=== PATIENT | female | born 1980 | race African-American/Black ===

== ENCOUNTER 2017-12-23 15:04 | Inpatient (IN) | payer MEDICARE, MEDICAID ==
[2017-12-23 15:56] LABS: Bilirubin Small (Negative); Blood, Urine Small (Negative); Clarity TURBID (Clear); Glucose, Urine (Dipstick) Negative (Negative); Leukocyte Moderate (Negative); Nitrite Negative (Negative); Protein, Urine (Dipstick) 100 mg/dL (Neg-Trace); Specific Gravity, Urine 1.019 (1.002-1.036); Urobilinogen 0.2 mg/dL (0.2-1.0)
[2017-12-23 15:58] LABS: Bacteria/HPF 4+ HPF (None Seen)
[2017-12-23 16:00] LABS: Pathc Cast-AUWi Flag 2.84 (0-2.49); Yeast-AUWi Flag 251.6 (0-25.0)
[2017-12-23 16:01] LABS: Pregnancy Test - Urine (BHCG) Negative (Negative); Pregu Control Background? CLEAR/WHITE (CLR/WHITE); Pregu Control Bar Appear? YES (CONTROL BAR); Specific Gravity 1.019 (1.002-1.036)
[2017-12-23 16:10] LABS: Hyaline Casts/LPF 0-3 HYALINE CAST LPF (0-3 Hyaline); Manual Microscopic Reviewed? No Path Casts Seen; RBC/HPF 0-3 HPF (0-3); Renal Epithelial None Seen HPF (0-3); Yeast-All Forms None Seen HPF (None Seen)
[2017-12-23 16:19] LABS: Hemoglobin 7.1 g/dL (12.0-16.0); Mean Corpuscular HGB CONC 31.9 g/dL (32.0-36.0); Mean Corpuscular Hemoglobin 20.4 pg (27.0-31.0); Mean Platelet Volume 7.4 fL (7.4-10.4); Platelet Count 229 thou/uL (130-400); RBC Distribution Width 17.6 % (11.5-14.5); Red Blood Cell (RBC) Count 3.47 mill/uL (4.20-5.40)
[2017-12-23 16:29] LABS: ALT (SGPT) 83 U/L (8-55); AST (SGOT) 71 U/L (5-34); Alkaline Phosphatase 76 U/L (40-150); Anion Gap 26 mmol/L (10-20); BUN (Urea Nitrogen) 100 mg/dL (7.0-18.7); Bilirubin, Total 0.5 mg/dL (0.2-1.2); Calc. Creatinine Clearance 0 mL/min (70-130); Calcium 8.8 mg/dL (7.8-10.44); Carbon Dioxide 18 mmol/L (22-29); Chloride 88 mmol/L (98-107); Estimated GFR-MDRD 5; Globulin 4.3 g/dL (2.4-3.5); Glucose 88 mg/dL (70-105); Potassium 3.5 mmol/L (3.5-5.1); Protein, Total 8.3 g/dL (6.0-8.3); Sodium 128 mmol/L (136-145)
[2017-12-23 16:41] LABS: Anisocytosis SLIGHT = 6-15 cells (100X) (0-5/hpf); Band 2 % (5-11); Hypochromia SLIGHT = 6-15 cells (100X) (0-5/hpf); Lymphocytes 3 % (21-51); MDiff Complete? YES; Microcytosis MODERATE=15-30 cells (100X) (0-5/hpf); Monocytes 3 % (0-10); Neutrophil 92 % (42-75); Ovalocytes SLIGHT = 2-5 cells (100X) (0-1/hpf); PLT Morphology Comment Appears Adequate
--- NOTE | 2017-12-23 17:44 | RAD ---
CHEST ONE VIEW: 12/23/17 HISTORY: 37-year-old female with history of chest pain, bodyaches and fever for two days. COMPARISON: 12/10/16. FINDINGS: Heart size is within normal limits. The lungs are clear. IMPRESSION: No acute intrathoracic disease. Stable from prior study. POS: [facility]
[2017-12-23] MEDS ORDERED: Ondansetron HCl/PF 4 MG/2 ML Vial IVP PRN (18:25)
[2017-12-23] MEDS ORDERED: Ondansetron ODT 4 MG TAB SL PRN (18:25)
[2017-12-23] MEDS: Sodium Chloride 0.9% 1,000 ML IV SCH (19:01)
[2017-12-24] MEDS ORDERED: Senokot 8.6 MG TAB PO PRN (04:41)
[2017-12-24] MEDS ORDERED: Acetaminophen 325 MG TAB PO PRN (04:41)
[2017-12-24] MEDS ORDERED: cloNIDine 0.1 MG TAB PO PRN (04:53)
--- NOTE | 2017-12-24 05:13 | HP ---
REASON FOR ADMISSION: Acute renal failure. HISTORY OF PRESENTING ILLNESS: Patient gives history of feeling weak and had abdominal pain. Please note, patient is a very poor historian. This started around yesterday. Patient states she has not started on any new medication. No complaints of any urinary burning or frequency. On arrival, patient was found to have had creatinine of 10 and BUN of 100, serum bicarbonate of 18. Patient has history of HIV from last 5 years and follows up with Dr. Hanson. She is unable to tell me if she has had any bleeding from her rectum. Her last stool was 2 days back and she states it looked normal. No diarrhea or nausea. No complaints or vomiting. Patient states she has been drinking normal fluid amount. No loss of appetite. Currently, she is comfortable, watching TV in the room. Her mom is at bedside. PAST MEDICAL AND SURGICAL HISTORY: History of HIV from last 5 years, hypertension, tubal ligation, has had scoliosis surgery. CURRENT MEDICATIONS: Lisinopril 20 mg twice daily, Atripla 1 tab daily. ALLERGIES: No known drug allergies. PERSONAL HISTORY: Does not abuse alcohol or drugs. No history of smoking. FAMILY HISTORY: Mother is here in the room and states she is healthy. The patient does not know much about her father, nor does her mom know as they have been for a long time now. REVIEW OF SYSTEMS: The following complete review of systems was negative, unless otherwise mentioned in the HPI or below: Constitutional: Weight loss or gain, ability to conduct usual activities. Skin: Rash, itching. Eyes: Double vision, pain. ENT/Mouth: Nose bleeding, neck stiffness, pain, tenderness. Cardiovascular: Palpitations, dyspnea on exertion, orthopnea. Respiratory: Shortness of breath, wheezing, cough, hemoptysis, fever, or night sweats. Gastrointestinal: Poor appetite, abdominal pain, heartburn, nausea, vomiting, constipation, or diarrhea. Genitourinary: Urgency, frequency, dysuria, nocturia. Musculoskeletal: Pain, swelling. Neurologic/Psychiatric: Anxiety, depression. Allergy/Immunologic: Skin rash, bleeding tendency. PHYSICAL EXAMINATION: GENERAL: Patient is a 37-year-old female who is currently not in any acute distress. VITAL SIGNS: Blood pressure 96/56 on arrival, pulse 104 per minute, respiratory rate 14 per minute, temperature 97.5 degrees Fahrenheit, saturating 97% on room air. NECK: Supple, no elevated JVD. HEENT: Extraocular muscles intact. Pupils are reacting to light. Oral cavity mucous membranes are dry. No exudates or congestion. CARDIOVASCULAR SYSTEM: S1, S2 heard. Regular rhythm. RESPIRATORY SYSTEM: Air entry 1+ bilateral. No rales or rhonchi. ABDOMEN: Soft, bowel sounds heard. There is mild tenderness in the left lower quadrant. No rigidity or guarding. EXTREMITIES: No peripheral edema or calf tenderness. VASCULAR SYSTEM: Peripheral pulses 1+ bilateral. No ischemic ulcerations or gangrene. CENTRAL NERVOUS SYSTEM: No gross focal deficits seen. Patient is alert, awake , oriented. PSYCHIATRIC SYSTEM: Patient's mood is euthymic. No hallucinations or delusions. LABORATORY DATA AND X-RAY FINDINGS: White count of 7, H&H 7 and 22, MCV is 64, platelet count is 229 with 92% neutrophils. Sodium 128, serum bicarbonate 18, BUN is 100, creatinine 10.2, glucose 88. AST 71, ALT 83, albumin is 4. Lipase is 68. UA shows moderate leukoesterase, greater than 50 wbc's, 4+ bacteria. Urine test is negative. Chest x-ray done shows no acute cardiopulmonary abnormalities. Telemetry shows the patient to be in sinus rhythm. CLINICAL IMPRESSION AND PLAN: Patient has sudden onset of acute renal failure and patient is also severely anemic with hemoglobin of 7 grams and MCV of 64. Her last H&H was 8 and 26 on 02/2017. Her last BUN and creatinine was 9 and 0.7 in 02/2017. We will obtain ultrasound of the kidneys and CT stone protocol as well in view of patient's left lower quadrant pain. It is unclear if she has got GI bleed or ureteric colic. Please note, patient is a very poor historian and it took me a while to get the history that I have gotten so far. We will get Dr. Hanson' consultation who knows patient well. We will also consult Dr. Lorenzana for Nephrology. She is on normal saline at 125 mL per hour and we will continue the same. We will obtain iron studies. Echo with 2D Doppler for LV function, a urine drug screen and likely Gastroenterology consultation. We will continue her Atripla as before. Hold her lisinopril for now. She will be on clonidine 0.1 mg t.i.d. p.r.n. Currently, she is hypotensive at present. Her systolic blood pressure has been trending around 90 and patient will be aggressively hydrated. There are no signs or symptoms of sepsis except for urinary tract infection and she will be on ceftriaxone for the same. We will closely follow her renal function and her hemoglobin until it stabilizes. Her prognosis is guarded for now. MTDD
[2017-12-24] MEDS: Sodium Chloride 0.9% 1,000 ML IV SCH ×2 (05:46→11:32)
[2017-12-24] MEDS: cefTRIAXone\\ROCEPHIN 1 GM in Syringe 10 ML IVPB SCH (05:48)
[2017-12-24 05:49] LABS: Iron 22 ug/dL (50-170); Iron Binding Capacity, Total 303 mcg/dL (265-497)
[2017-12-24 05:58] LABS: Albumin 3.6 g/dL (3.5-5.0); Anion Gap 15 mmol/L (10-20); BUN (Urea Nitrogen) 81 mg/dL (7.0-18.7); BUN/Creatinine Ratio 16.27; Calc. Creatinine Clearance 17 mL/min (70-130); Calcium 8.6 mg/dL (7.8-10.44); Carbon Dioxide 23 mmol/L (22-29); Chloride 98 mmol/L (98-107); Estimated GFR-MDRD 12; Glucose 92 mg/dL (70-105); Iron 22 ug/dL (50-170); Iron Binding Capacity, Total 301 mcg/dL (265-497); Phosphorus 5.4 mg/dL (2.3-4.7); Potassium 3.5 mmol/L (3.5-5.1); Sodium 132 mmol/L (136-145)
[2017-12-24 06:05] LABS: Band 1 % (5-11); Elliptocytes SLIGHT = 2-5 cells (100X) (0-1/hpf); Hemoglobin 6.4 g/dL (12.0-16.0); Lymphocytes 15 % (21-51); MDiff Complete? YES; Mean Corpuscular HGB CONC 31.2 g/dL (32.0-36.0); Mean Corpuscular Hemoglobin 20.4 pg (27.0-31.0); Mean Corpuscular Volume 65.4 fl (81.0-99.0); Mean Platelet Volume 6.9 fL (7.4-10.4); Microcytosis MODERATE=15-30 cells (100X) (0-5/hpf); Monocytes 15 % (0-10); Neutrophil 69 % (42-75); Platelet Count 215 thou/uL (130-400); RBC Distribution Width 17.3 % (11.5-14.5); Red Blood Cell (RBC) Count 3.14 mill/uL (4.20-5.40); White Blood Cell (WBC) Count 3.1 thou/uL (4.8-10.8)
[2017-12-24 06:23] LABS: Folate (Folic Acid) 12.3 ng/mL (7.0-31.4)
[2017-12-24 06:29] LABS: Amphetamine Not Detected (NotDetected); Barbiturates Screen Not Detected (NotDetected); Benzodiazepine Screen Not Detected (NotDetected); Cocaine Metabolite Screen Not Detected (NotDetected); Medtox Control Line Valid? VALID (VALID); Medtox Reader # READER 4; Methadone Not Detected (NotDetected); Methamphetamine Not Detected (NotDetected); Opiate Screen Not Detected (NotDetected); Oxycodone Screen Not Detected (NotDetected); Phencyclidine (PCP) Not Detected (NotDetected); THC/Cannabinoid Screen Not Detected (NotDetected); Tricyclic Screen Not Detected (NotDetected)
[2017-12-24] MEDS: Famotidine 20 MG TAB PO SCH (08:35)
[2017-12-24] MEDS: Heparin 5,000 UNITS/ML VIAL SC SCH ×2 (08:36→22:02)
[2017-12-24] MEDS ORDERED: Prevnar 13-Val Conj/PF 0.5 ML SYRINGE IM ONE (09:00)
[2017-12-24] MEDS ORDERED: cloNIDine 0.1 MG TAB PO SCH (09:00)
[2017-12-24] MEDS ORDERED: FLU VACC QS2017-18 36 mo. & older 0.5 ML SYRINGE IM ONE (09:00)
--- NOTE | 2017-12-24 09:44 | ULT ---
BILATERAL RENAL ULTRASOUND COMPLETE: Date: 12/24/17 HISTORY: 37-year-old female with history of acute renal failure. FINDINGS: The right kidney measures 11.7 x 4.1 x 5.8 cm. The left kidney measures 11.8 x 5.7 x 6.0 cm. There is very slight fullness of the left upper renal collecting system and calices. Neither right nor left u reteral jets are demonstrated. There is an incompletely seen large, bulky, abnormal uterus containing multiple intrauterine masses up to approximately 7.4 cm in size, probably related to multiple uterin e fibroids. If this is a clinical concern, follow-up complete pelvic ultrasound might be of benefit. IMPRESSION: 1. Slight fullness of the left upper renal collecting system and calices. 2. Large, bulky uterus, with multiple masses, probably multiple uterine fibroids. This can be furthe r assessed with follow-up pelvic ultrasound. POS: [facility]
--- NOTE | 2017-12-24 11:21 | PDOC.PN ---
- Subjective Encounter Start Date: 12/24/17 Encounter Start Time: 11:21 Patient seen at bedside. No overnight events, no new complaints. - Objective Resuscitation Status: Resuscitation Status FULL:Full Resuscitation MAR Reviewed: Yes Vital Signs & Weight: Vital Signs (12 hours) Temp Pulse Resp BP Pulse Ox 12/24/17 08:25 97.5 F L 84 16 97 12/24/17 08:23 97.5 F L 84 16 100/54 L 97 12/24/17 04:41 97.5 F L 85 14 96/54 L 97 Weight Weight 152 lb I&O: 12/23/17 12/24/17 12/25/17 06:59 06:59 06:59 Intake Total 1740 Output Total 900 Balance 840 Result Diagrams: 12/24/17 04:59 12/24/17 04:59 Phys Exam - Physical Examination Constitutional: NAD HEENT: moist MMs Neck: no JVD Respiratory: clear to auscultation bilateral Cardiovascular: RRR Gastrointestinal: soft Musculoskeletal: pulses present Neurological: moves all 4 limbs Psychiatric: normal affect, A&O x 3 Skin: no rash, normal turgor Dx/Plan (1) Acute kidney failure Status: Acute (2) Anemia Code(s): D64.9 - ANEMIA, UNSPECIFIED Status: Acute Qualifiers: Anemia type: due to chronic kidney disease (3) UTI (urinary tract infection) Status: Suspected (4) HIV (human immunodeficiency virus infection) Status: Chronic - Plan cont current plan of care, plan discussed w/ family, continue antibiotics * Continue with IV Fluids. * Renal Function panel daily * Hold Lisinopril * F/U CT Stone Protocol/ Echocardiogram * Spoke with Nephrology, will order Epogen. * Transfuse 1 unit PRBC
--- NOTE | 2017-12-24 11:35 | CT ---
CT ABDOMEN AND PELVIS WITHOUT IV CONTRAST: Date: 12/24/17 Multiple axial tomograms obtained through the abdomen and pelvis without IV enhancement. HISTORY: Abdominal pain. Left lower quadrant pain. FINDINGS: Lung bases are clear. Liver, spleen, and pancreas appear unremarkable given the limitations of an unenhanced study. Adrenal glands are normal. There is mild left hydronephrosis. Mild dilatation of the left ureter to the level of the uterus. No urinary calculus identified. The uterus is enlarged and there is a heterogeneous mass arising from th e uterine fundus projecting to the left measuring up to 8.0 cm suggesting a uterine fibroid. This may be obstructing the left ureter. Urinary bladder is mildly distended and appears unremarkable. This u terine mass does indent the bladder posteriorly from the left. The small bowel loops are normal caliber. Appendix appears unremarkable. Aorta is normal caliber. Sco liotic curvature of the thoracolumbar spine is noted. IMPRESSION: Mild left hydronephrosis. The left ureter is dilated to the level of the uterus. There is a uterine m ass arising from the uterine fundus projecting to the left, which may be obstructing the left ureter at this location. This appears to represent an 8.0 cm fibroid arising from the uterine fundus. POS: [facility]
--- NOTE | 2017-12-24 12:34 | CON ---
DATE OF CONSULTATION: 12/24/2017 REASON FOR CONSULTATION: Elevated creatinine. HISTORY OF PRESENT ILLNESS: This is a very pleasant 37-year-old female with no known history of CKD. She presented to the hospital with acute renal failure with a creatinine of 10. The patient had diarrhea, nausea, and vomiting and has had HIV. The patient denies any abdominal pain, nausea or vomiting at this time. PAST MEDICAL HISTORY: HIV, hypertension, and tubal ligation, scoliosis. HOME MEDICATIONS: List reviewed. ALLERGIES: Reviewed. FAMILY HISTORY: Negative for ESRD. REVIEW OF SYSTEMS: Fifteen point review of systems was performed and negative except positives noted above. GENERAL: Weakness- HEAD: Headache- NECK: No swelling or lumps. NOSE: No epistaxis or discharge. EYES: No diplopia or pain. RESPIRATORY: Dyspnea- CARDIOVASCULAR: Chest pain- GASTROINTESTINAL: Nausea- /INSIDE SALES LEAD: Hematuria- MUSCULOSKELETAL: No joint pain. NEUROPSYCHIATIC SYSTEMS: No suicidal ideation. No ideation. SKIN: Denies any rash or ulcer. CONSTITUTIONAL: No fever or chills. PHYSICAL EXAMINATION: GENERAL: Patient is awake, alert. VITAL SIGNS: Afebrile, pulse 85, breathing 16, blood pressure 96/54. GENERAL APPEARANCE AND MENTAL STATUS: Fair. HEAD/NECK: Normocephalic. Atraumatic. EYES: EOMI. No deformity. EARS: Clear. No ulcers. NOSE: Intact. No lesions. MOUTH: Clear. No discharge. THROAT: Clear. No exudate. LUNGS: Clear. No crackles. CARDIAC: S1, S2. No rub. ABDOMEN: Benign. BS+. GENITALIA/RECTUM: Murry absent. BACK/EXTREMITIES: Edema 0+ Ulcer- NEUROLOGICAL: Alert and motor intact. SKIN: Rash- Bruise- LYMPHATICS: Edema- Ulcer- LABORATORY: Hemoglobin 6.4, creatinine 4.9. ASSESSMENT AND RECOMMENDATIONS: 1. Acute kidney injury with chronic kidney disease, with SHAY inhibitor and diarrhea in the setting of vomiting and decreased effective arterial blood volume. Agree with hydration. 2. Hyponatremia, improved. 3. Hypokalemia, stable. 4. Metabolic acidosis, stable. No indication for dialysis. We will follow the patient's renal function closely. Imaging is pending. [facility]
[2017-12-24 13:05] VITALS: BMI 26.9
--- NOTE | 2017-12-24 19:08 | CON ---
DATE OF CONSULTATION: 12/24/2017 REASON FOR CONSULTATION: Acute renal failure, HIV seropositive status. HISTORY OF PRESENT ILLNESS: A 37-year-old patient of mine, last time seen in 2013 with a longstandin g HIV seropositive status. In 2013, her viral load was undetectable and CD4 cell count 488. For saurav e reason, she decided to do stop following up with us and reportedly has not taken her antiretroviral medication now for about a year. About two days ago, developed nausea, vomiting, general malaise, a nd was admitted with acute renal failure. She does not recall any headaches, no visual symptoms, sor e throat, aphasia, dysphagia. A little bit of toothache on the right molar. No neck pain or back pa in. No dyspnea, cough or sputum production or chest pain, no abdominal pain, no genitourinary sympto ms. No incontinence. No bleeding, no joint symptoms or skin disorder. PAST MEDICAL HISTORY: Longstanding HIV infection, last CD4 cell count 488 in 2013, has not been seen since in the clinic, not clear why she stopped coming to the clinic visits. Still leaving town and is living with her mother and now; hypertension, on clonidine and lisinopril; previous tubal ligation , and scoliosis surgery. CURRENT MEDICATIONS: Tylenol, ceftriaxone, clonidine, famotidine, heparin, senna, and sodium chlorid e. SOCIAL HISTORY: No drug use. Never a smoker, no alcoholic beverage use. FAMILY HISTORY: Noncontributory. PHYSICAL EXAMINATION: VITAL SIGNS: T-max 97-98.4, blood pressure is 102/60, pulse 84, respirations 18, O2 sat 92%. The BP has ranged from 84/50-102/60. SKIN: No skin findings of significance as the patient has an external jugular IV access left side. No Murry catheter. Urinary output has been 900 mL today, thus far no lymphadenopathy. HEENT: Noncontributory. Ocular movements are conjugate. Sclerae white. Oral cavity normal. NECK: Supple, jugular distention. LUNGS: With symmetric clear breath sounds. HEART: S1, S2, regular rate. No S3, S4. ABDOMEN: Soft, not distended or tender. No bladder distention. EXTREMITIES: No joint inflammatory activity. NEUROLOGIC: Nonfocal including cognitive function. LABORATORY DATA: White cell count is 7, now 3.1, hemoglobin 7.1 and 6.4, MCV 65, platelet count 215 with neutrophil percentage 92 and now 69. Chemistry: Sodium 132, creatinine was 10.24 and now 4.98, calcium 8.8, glucose 88. Lactic acid 1.4, AST 71, ALT 83, globulin 4.3 and I do not see a CPK here. Ferritin is 259, iron 22. Urinalysis with 100 protein, leukocyte esterase moderate. Toxicology wa s not detected. Abdomen and pelvis CT without contrast with mild left hydronephrosis, uterine mass, probably leiomyoma. Renal ultrasound is only mild dilatation of the collecting system, left kidney. Chest x-ray with no intrathoracic disease. ASSESSMENT: Longstanding human immunodeficiency virus infection, until 2013 had excellent adherence to treatment with suppressed viral load and CD4 in the 488 range, but since then has stopped coming t o the visits and quit taking her antiretroviral therapy reportedly for about a year now. The patient also has hypertension and is on antihypertensive medications including SHAY inhibitors, now has devel oped acute renal failure. DISCUSSION: Differential diagnosis includes of focal sclerosing glomerulonephritis with proteinuria, ATN associated with volume depletion and SHAY inhibitors and rhabdomyolysis is a possibility. We arden l check CPK. We will start antiretroviral therapy with raltegravir, etravirine and Kaletra, which ar e not excreted by the kidneys. Eventually transition to probably Prezcobix and Tivicay in the outpat ient setting or similar regimen. Recheck CD4 cell count, viral load, hepatitis serology, CPK, and RP R.
--- NOTE | 2017-12-24 20:41 | CON ---
DATE OF CONSULTATION: 12/24/2017 HISTORY OF PRESENT ILLNESS: Patient is a 37-year-old -[place] female who [facility] until the day of admission when she developed diffuse body aches and pains and had saurav e vomiting. She has vomiting every once in a while, approximately once or twice per month. She usua lly vomits undigested food. She has a history of HIV and is on treatment for that. She denies any m tai, hematochezia. She has had very heavy periods over the last year, passing large clots. PAST MEDICAL HISTORY: Includes HIV, hypertension, tubal ligation. PAST SURGICAL HISTORY: Includes scoliosis surgery. MEDICATIONS: Lisinopril and Atripla. ALLERGIES: No known allergies. SOCIAL HISTORY: She does not smoke or drink. FAMILY HISTORY: Negative for GI or liver disease. REVIEW OF SYSTEMS: Ten systems were reviewed and were negative except for above. PHYSICAL EXAMINATION: GENERAL: Shows a well-developed, well-nourished -Faroese female in no acute distress. VITAL SIGNS: Temperature 98.3, pulse 92, respiratory rate 20, blood pressure 100/56. HEENT: Unremarkable. NECK: Supple. CHEST: Clear. CARDIOVASCULAR: Regular rate and rhythm. ABDOMEN: Soft, nontender, without organomegaly or masses. Bowel sounds are present and normoactive. RECTAL: Deferred. EXTREMITIES: Normal. NEUROLOGIC: Nonfocal. LABORATORY: Shows a white blood cell count of 3.1, hemoglobin of 64, hematocrit 20.5 with MCV of 65. 4. Chemistry on admission shows sodium 128, chloride 88, CO2 of 18, BUN 100, creatinine 10.24. AST of 71. Iron of 22, TIBC of 301, percent sat of 7, alkaline phosphatase 76. Ferritin of 257. Vitami n B12 and folate are normal. Urine screen is negative. Abdominal and pelvic CT showed mild left hyd ronephrosis, uterine mass. ASSESSMENT: 1. Severe iron deficiency anemia secondary to menorrhagia. 2. Human immunodeficiency virus positive. 3. Acute kidney injury. RECOMMENDATIONS: 1. Consult Hematology/Oncology for possible IV iron infusion. 2. Stool for hemoccult. 3. Gynecologic input.
[2017-12-24] MEDS: Lopinavir/Ritonavir 200-50mg TAB PO SCH (22:00)
[2017-12-24] MEDS: Raltegravir Potassium 400 MG TAB PO SCH (22:00)
[2017-12-24 22:39] LABS: Syphilis Antibody Nonreactive (Nonreactive); Syphilis Antibody Index 0.08 S/CO (<1.00 Non-Reactive)
--- NOTE | 2017-12-24 23:18 | CON ---
DATE OF CONSULTATION: 12/24/2017 REFERRING PHYSICIAN: Dr. Lorenzana. CONSULTING PHYSICIAN: Dr. Celso Mckay. HISTORY OF PRESENT ILLNESS: Ms. Heard is a 37-year-old black female, G3, P3 , last menstrual period approximately a week ago who I have been asked to see by Dr. Lorenzana for evaluation of pelvic masses seen on CT. She was admitted on the with complaints of lower abdominal pain and feeling weak. The patient reports that over the last year, she has had increasingly heavy periods and that her last Pap smear was two years ago. She reports that this was normal. Currently, she is being evaluated by Renal and has been admitted by the hospitalist with anemia and renal failure. PAST MEDICAL HISTORY: History of HIV for 6 years. She currently sees Dr. Hanson. PAST MEDICAL HISTORY: Also includes elevated blood pressure. CURRENT MEDICATIONS: Atripla and lisinopril. PAST SURGICAL HISTORY: Includes surgery for back for scoliosis as well as a tubal ligation [place] [address]. ALLERGIES: No reported allergies. SOCIAL HISTORY: She drinks occasionally, but denies tobacco or illicit drug use. REVIEW OF SYSTEMS: She does report diffuse abdominal pain and weakness over the last several days. She denies nausea, vomiting, fever or chills. PHYSICAL EXAMINATION: VITAL SIGNS: Tonight, blood pressure 100/56, pulse 95, respirations 20. ABDOMEN: Soft and nontender. There is no guarding or rebound. There is no active vaginal bleeding, although bimanual pelvic examination is not performed. LABORATORY DATA: This morning show a white count of 3.1, hemoglobin and hematocrit of 6.4 and 20.5 and a platelet count of 215,000. BUN is 81, creatinine 4.9. Urinalysis on admission showed too numerous to count white blood cells and 4+ bacteria. Her urine test on admission was negative. IMAGING: A CT scan of the abdomen shows multiple masses apparently arising from the uterus. ASSESSMENT: 1. Multiple uterine masses. I suspect these are fibroids. 2. Menometrorrhagia. 3. Anemia. 4. Human immunodeficiency virus positive. PLAN: At this time, I have ordered a pelvic ultrasound in the morning to further define the masses in her uterus, which I suspect are multiple fibroids. After that, the patient may require an endometrial biopsy and she will need a Pap smear. Further recommendations will follow. MTDD
[2017-12-24 23:30] LABS: HBSAg Index 0.44 S/CO (0-0.99); Hep B Surf Ag Non-Reactive S/CO (NonReactive)
[2017-12-24 23:31] LABS: Hep C IgG Ab Non-Reactive (NonReactive); Hep C Index 0.19 S/CO (0-0.79)
[2017-12-25 01:23] LABS: HBSAB Concentration 14.66 mIU/mL; Hep B Surf AB Reactive (NonReactive)
[2017-12-25] MEDS: Sodium Chloride 0.9% 1,000 ML IV SCH ×3 (04:51→11:42)
[2017-12-25] MEDS: cefTRIAXone\\ROCEPHIN 1 GM in Syringe 10 ML IVPB SCH (04:52)
[2017-12-25 06:04] LABS: Albumin 3.6 g/dL (3.5-5.0); Anion Gap 18 mmol/L (10-20); BUN (Urea Nitrogen) 53 mg/dL (7.0-18.7); BUN/Creatinine Ratio 27.46; Calc. Creatinine Clearance 43 mL/min (70-130); Carbon Dioxide 22 mmol/L (22-29); Chloride 98 mmol/L (98-107); Estimated GFR-MDRD 35; Glucose 93 mg/dL (70-105); Phosphorus 2.9 mg/dL (2.3-4.7); Potassium 3.4 mmol/L (3.5-5.1); Sodium 135 mmol/L (136-145)
[2017-12-25 06:51] LABS: Band 2 % (5-11); Hemoglobin 7.5 g/dL (12.0-16.0); Lymphocytes 20 % (21-51); MDiff Complete? YES; Mean Corpuscular HGB CONC 32.4 g/dL (32.0-36.0); Mean Corpuscular Volume 67.8 fl (81.0-99.0); Mean Platelet Volume 10.7 fL (7.4-10.4); Monocytes 19 % (0-10); Neutrophil 59 % (42-75); Platelet Count 216 thou/uL (130-400); RBC Distribution Width 19.1 % (11.5-14.5); Red Blood Cell (RBC) Count 3.42 mill/uL (4.20-5.40); White Blood Cell (WBC) Count 2.6 thou/uL (4.8-10.8)
[2017-12-25] MEDS ORDERED: Potassium Chloride 20 MEQ TAB PO SCH (09:45)
[2017-12-25] MEDS: Heparin 5,000 UNITS/ML VIAL SC SCH ×2 (09:52→21:30)
[2017-12-25] MEDS: Famotidine 20 MG TAB PO SCH (09:52)
[2017-12-25] MEDS: Lopinavir/Ritonavir 200-50mg TAB PO SCH ×2 (09:52→21:30)
[2017-12-25] MEDS: Raltegravir Potassium 400 MG TAB PO SCH ×2 (09:53→21:30)
--- NOTE | 2017-12-25 12:18 | PRG ---
DATE OF SERVICE: 12/25/2017 SUBJECTIVE: A 37-year-old female being seen for acute kidney injury. The patient denies any nausea, vomiting, or chest pain. PHYSICAL EXAMINATION: GENERAL: Patient is awake and alert. VITAL SIGNS: Afebrile, pulse 76, breathing 16, blood pressure 106/56. HEAD/NECK: Normocephalic. Atraumatic. EYES: EOMI. No deformity. EARS: Clear. No ulcers. NOSE: Intact. No lesions. MOUTH: Clear. No discharge. THROAT: Clear. No exudate. LUNGS: Clear. No crackles. CARDIAC: S1, S2. No rub. ABDOMEN: Benign. BS+. GENITALIA/RECTUM: Murry absent. BACK/EXTREMITIES: Edema 0+ Ulcer- NEUROLOGICAL: Alert and motor intact. SKIN: Rash- Bruise- LYMPHATICS: Edema- Ulcer- LABORATORY DATA: Show hemoglobin 7.5 and creatinine 1.9. RECOMMENDATIONS: 1. Acute kidney injury, improved. 2. Hypertension, stable. 3. Obstructive uropathy due to uterine mass. [facility] has been consulted. 4. Anemia, stable. 5. Medications based on glomerular filtration rate are appropriate. 6. Hypokalemia. Recommend high potassium diet.
--- NOTE | 2017-12-25 12:33 | PRG ---
DATE OF SERVICE: 12/25/2017 SUBJECTIVE: The patient is feeling well. She is having no nausea or vomiting. No abdominal pain. Bowel movements are moving normally. There are no stool samples for occult blood noted on results. OBJECTIVE: VITAL SIGNS: Temperature 97.4, pulse 82, respiratory rate 18, blood pressure 105/58. CHEST: Clear. CARDIOVASCULAR: Regular rate and rhythm. ABDOMEN: Benign. LABORATORY DATA: Shows a BUN 53, creatinine 1.93, sodium 135, potassium 3.4. White blood cell count of 2.6, hemoglobin of 7.5, hematocrit 23.2 with MCV of 67.8. ASSESSMENT: 1. Severe iron deficiency anemia secondary to menorrhagia. 2. Human immunodeficiency virus infection. 3. Acute kidney injury - resolving. RECOMMENDATIONS: 1. Consult Hematology for possible IV iron infusion. 2. Stool for Hemoccult.
--- NOTE | 2017-12-25 12:48 | ULT ---
PELVIC ULTRASOUND: HISTORY: Pelvic mass seen on CT. FINDINGS: Multiple longitudinal and transverse images of the pelvis were obtained using a multihertz curvilinea r transducer. Real-time, color flow, and spectral Waveform Doppler analysis was used to evaluate the pelvis. The uterus measures 11.8 x 7.7 x 9.6 cm with an endometrium having a double wall thickness of 17 mm. There is a large uterine fibroid measuring 6.6 x 6.9 x 6.3 cm in the uterine fundus. No other obvious mass is seen. Both ovaries visualized with good blood flow. The right ovary measures 2.7 x 1.9 x 2.4 cm and the left ovary 3.0 x 2.1 x 2.6 cm. IMPRESSION: Uterine fibroid; otherwise, unremarkable pelvic ultrasound. POS: [facility]
--- NOTE | 2017-12-25 14:11 | PDOC.PN ---
- Subjective Encounter Start Date: 12/25/17 Encounter Start Time: 10:00 Subjective: pt up in bed no complains - Objective Resuscitation Status: Resuscitation Status FULL:Full Resuscitation Vital Signs & Weight: Vital Signs (12 hours) Temp Pulse Resp BP Pulse Ox 12/25/17 11:43 97.4 F L 82 18 105/58 L 100 12/25/17 08:00 97.9 F 74 20 98 12/25/17 04:41 97.9 F 74 20 106/56 L 99 Weight Admit Weight 152 lb Weight 152 lb I&O: 12/24/17 12/25/17 12/26/17 06:59 06:59 06:59 Intake Total 1740 350 Output Total 900 Balance 840 350 Result Diagrams: 12/25/17 05:01 12/25/17 05:01 Phys Exam - Physical Examination pale conjuntiva Neck: no nodes Respiratory: no wheezing, no rales Cardiovascular: RRR, no significant murmur Gastrointestinal: soft, non-tender Musculoskeletal: no edema Dx/Plan - Plan 1) marti: creatinine improved continue to monitor, ct indicated left mild hydronephrosis due to uterine fibroid. obgyn consulted. 2) anemia: pt has bee having heavy menstrual bleeding. HH low stable. will order iv iron due to iron def anemia. hh is 7 will monitor. check labs in am. 3) uti: suspected will continue abx 4) hiv on her antivirals Review of Systems - Review of Systems ENT: negative: Ear Pain, Ear Discharge, Nose Pain, Nose Discharge, Nose Congestion, Mouth Pain, Mouth Swelling, Throat Pain, Throat Swelling, Other Respiratory: negative: Cough, Dry, Shortness of Breath, Hemoptysis, SOB with Excertion, Pleuritic Pain, Sputum, Wheezing Cardiovascular: negative: chest pain, palpitations, orthopnea, paroxysmal nocturnal dyspnea, edema, light headedness, other - Medications/Allergies Allergies/Adverse Reactions: Allergies Allergy/AdvReac Type Severity Reaction Status Date / Time No Known Drug Allergies Allergy Verified 12/24/17 05:43 Medications: Current Medications Acetaminophen (Tylenol) 650 mg PO Q4H PRN PRN Reason: Headache/Fever or Pain Last Admin: 12/24/17 05:59 Dose: 650 mg Clonidine (Catapres) 0.1 mg PO TID PRN PRN Reason: sbp>160 Etravirine (Intelence) 200 mg PO BID [facility] Last Admin: 12/25/17 09:52 Dose: 200 mg Famotidine (Pepcid) 20 mg PO DAILY [facility] Last Admin: 12/25/17 09:52 Dose: 20 mg Heparin Sodium (Porcine) (Heparin) 5,000 units SC BID [facility] Last Admin: 12/25/17 09:52 Dose: 5,000 units Sodium Chloride (Normal Saline 0.9%) 1,000 mls @ 125 mls/hr IV .Q8H [facility] Stop: 12/26/17 05:00 Last Admin: 12/25/17 11:42 Dose: Not Given Ceftriaxone Sodium 1 gm/ (Syringe) 10 mls @ 120 mls/hr IVPB Q24HR [facility] Last Admin: 12/25/17 04:52 Dose: 10 mls Ferric Sodium Gluconate Complex 250 mg/ Sodium Chloride 120 mls @ 60 mls/hr IVPB NOW [facility] Stop: 12/25/17 16:59 Lopinavir/Ritonavir (Kaletra) 2 tab PO BID [facility] Last Admin: 12/25/17 09:52 Dose: 2 tab Raltegravir (Isentress) 400 mg PO BID [facility] Last Admin: 12/25/17 09:53 Dose: 400 mg Senna (Senokot) 2 tab PO HSPRN PRN PRN Reason: Constipation
[2017-12-25] MEDS ORDERED: Iron Sucrose Complex 200 MG in Sodium Chloride 0.9% 250 ML 250 ML IVPB SCH (14:15)
[2017-12-25] MEDS ORDERED: Sodium Ferric Gluconate 250 MG in Sodium Chloride 0.9% 100 ML IVPB SCH (15:00)
[2017-12-25 18:33] LABS: Hemoglobin 8.3 g/dL (12.0-16.0)
--- NOTE | 2017-12-25 19:42 | CON ---
DATE OF CONSULTATION: 12/25/2017 REASON FOR CONSULTATION: Anemia. HISTORY OF PRESENT ILLNESS: Ms. Heard is a pleasant -Citizen Of [place] female who presented to the emergency room with weakness and abdominal pain times several days. On arrival, she was found to hav e a creatinine of 10 and a hemoglobin of 7.1. She was admitted for acute renal insufficiency and sta rted on IV hydration. Her creatinine has improved dramatically since admission. She was transfused 1 unit of packed RBCs and Dr. Myrick was consulted. The patient has a history of menorrhagia. She has had heavy periods for several months with clots. She did have a vaginal ultrasound, which showed fi broids. LENGTH CONTROL TESTER has been consulted and is managing. She also has a history of HIV. She has not been on medication or seeing Dr. Hanson over the past year. She admits to several month histories of feeling tired and having exercise intolerance. Her studies showed a serum iron of 22, iron saturation is 7, TIBC of 303 and a ferritin of 257. Her B12 and folate are normal. Review of previous admission rev eals that in 2014, the patient's CBC showed a normal hemoglobin of 13 with a hematocrit of 33.7 and a n MCV of 70.3. The patient denies any known family history of thalassemia. PAST MEDICAL HISTORY: 1. HIV. 2. Hypertension. PAST SURGICAL HISTORY: 1. Tubal ligation. 2. Scoliosis surgery. ALLERGIES: No known drug allergies. HOME MEDICATIONS: 1. Catapres 0.1 mg b.i.d. 2. Lisinopril 20 mg daily. 3. Atripla daily. FAMILY HISTORY: No known history of thalassemia. SOCIAL HISTORY: Single, lives with her mother. No alcohol, tobacco or illicit drug use. REVIEW OF SYSTEMS: Twelve-point review of systems is negative except for noted in HPI. PHYSICAL EXAMINATION: VITAL SIGNS: Temperature is 97.8, pulse is 92, respiratory rate 18 and BP is 110/59. She is 100% on room air. GENERAL: A well-developed, well-nourished female in no acute distress. HEENT: Normocephalic and atraumatic. Pupils are equal and reactive to light. NECK: Supple. CARDIOVASCULAR: Regular rate and rhythm. LUNGS: Clear. ABDOMEN: Soft and nontender. There is no organomegaly. Bowel sounds are positive. EXTREMITIES: No clubbing, cyanosis or edema. SKIN: No rash. HEMATOLOGIC: No petechia or purpura. NEUROLOGIC: Nonfocal. PSYCHIATRIC: The patient is alert, oriented and appropriate. PERTINENT LABORATORY AND X-RAYS: Current WBCs 2.6, hemoglobin 7.5, hematocrit 23.2 and platelet coun t is 216,000. Her MCV is 67.8, 59% neutrophils, 20% lymphocytes and 19% monocytes. Sodium is 135, p otassium 3.4, chloride 98, CO2 is 22, BUN is 53, creatinine 1.93, calcium is 9.0 and phosphorus 2.9. Iron studies per HPI. Urine had 4+ bacteria. Abdominal and pelvis CT showed a uterine mass, pelvic transvaginal ultrasound showed a uterine fibroid. IMPRESSION: 1. Severe anemia. 2. Menorrhagia with fibroids. 3. Mild iron deficiency. 4. History of human immunodeficiency virus. 5. History of normal hemoglobin with microcytosis. DISCUSSION: The patient received 1 dose of IV iron. She should go home on oral iron once daily for approximately 3 months or until her bleeding is under control. LENGTH CONTROL TESTER is seeing her for her menorrhagia . I do think she likely has thalassemia A, which is causing her microcytosis despite a normal hemogl obin in the past and her essentially normal iron studies in the setting of severe anemia. We will fo llow her peripherally. Thank you for the consult.
--- NOTE | 2017-12-25 21:26 | PRG ---
DATE OF SERVICE: 12/25/2017 This is a followup to an OB consultation performed by Dr. Mckay on behalf of Dr. Lorenzana, the labor relations consultant, for a pelvic mass. Ultrasound ordered by Dr. Mckay does confirm suspicion that the patient's mass is a uterine fibroid measuring approximately 7 cm in the fundus of the uterus, which is not creating an acute problem at this time. Outpatient evaluation is encouraged for Ms. Heard for better evaluation of her increasingly heavy menstrual periods. The patient may benefit from a trial of endometrial or progestin containing intrauterine device or discussion of an endometrial ablation after further evaluation. I will be signing off at this time. If there is anything that can be done to participate in her care further please feel free to notify us. CARIE
[2017-12-26 05:15] LABS: Hemoglobin 8.1 g/dL (12.0-16.0)
[2017-12-26] MEDS: cefTRIAXone\\ROCEPHIN 1 GM in Syringe 10 ML IVPB SCH (05:27)
[2017-12-26 05:39] LABS: Anion Gap 16 mmol/L (10-20); BUN (Urea Nitrogen) 41 mg/dL (7.0-18.7); Calc. Creatinine Clearance 56 mL/min (70-130); Calcium 9.5 mg/dL (7.8-10.44); Carbon Dioxide 24 mmol/L (22-29); Chloride 101 mmol/L (98-107); Estimated GFR-MDRD 48; Glucose 90 mg/dL (70-105); Potassium 4.2 mmol/L (3.5-5.1); Sodium 137 mmol/L (136-145)
[2017-12-26] MEDS: Famotidine 20 MG TAB PO SCH (08:45)
[2017-12-26] MEDS: Lopinavir/Ritonavir 200-50mg TAB PO SCH (08:45)
[2017-12-26] MEDS: Heparin 5,000 UNITS/ML VIAL SC SCH (08:45)
[2017-12-26] MEDS: Raltegravir Potassium 400 MG TAB PO SCH (08:45)
[2017-12-26 12:22] VITALS: BP 95/53; TEMP 97.6
--- NOTE | 2017-12-26 12:40 | PRG ---
DATE OF SERVICE: 12/26/2017 SUBJECTIVE: This is a 37-year-old female being seen for acute kidney injury. The patient denies any nausea, vomiting, or chest pain. PHYSICAL EXAMINATION: GENERAL: The patient is awake. VITAL SIGNS: Afebrile, pulse 81, breathing 16, blood pressure 111/67. HEAD/NECK: Normocephalic. Atraumatic. EYES: EOMI. No deformity. EARS: Clear. No ulcers. NOSE: Intact. No lesions. MOUTH: Clear. No discharge. THROAT: Clear. No exudate. LUNGS: Clear. No crackles. CARDIAC: S1, S2. No rub. ABDOMEN: Benign. BS+. GENITALIA/RECTUM: Murry absent. BACK/EXTREMITIES: Edema 0+ Ulcer- NEUROLOGICAL: Alert and motor intact. SKIN: Rash- Bruise- LYMPHATICS: Edema- Ulcer- LABORATORY DATA: Show hemoglobin 8.1 and creatinine 1.4. ASSESSMENT AND PLAN: 1. Acute kidney injury, improved. 2. Hypokalemia, stable. 3. Anemia, stable. No indication for dialysis. The patient can be discharged home. 4. Uterine mass. The patient will follow up with ANIMAL RIDE MANAGER.
--- NOTE | 2017-12-26 17:41 | DIS ---
DATE OF ADMISSION: 12/23/2017 DATE OF DISCHARGE: 12/26/2017 DISCHARGE DIAGNOSES: Acute kidney injury, anemia, urinary tract infection, human immunodeficiency vi leona, on antiretrovirals. HISTORY OF PRESENT ILLNESS: Ms. Khalida Heard is a 37-year-old female who was admitted for acute re nal failure. She gave a history of feeling weak and abdominal pain which started the day before she presented to the hospital. There were no urinary symptoms. On arrival, she was found to have a crea tinine of 10 and BUN of 100 with serum bicarbonate of 18. She has a history of HIV diagnosed about 5 years ago and followed up with Dr. Hanson. There was no history of loss of appetite and poor oral fl uid intake. She had no other symptoms. She was immediately started on IV fluids. Infectious Diseas e was consulted to titrate her antiretrovirals. She was switched to raltegravir, etravirine and Kale tra, which are not excreted by the kidneys. She was also started on IV antibiotics, ceftriaxone. St ool cultures were taken, which showed elevated fecal lactoferrin, C. diff was negative. Urine cultur e was also negative. Blood culture showed no growth at 48 hours. She had anemia and her hematocrit was trended and remained stable on admission. She was started on parenteral fluids with marked impro vement in her serum creatinine. Imaging done during this admission includes abdomen/pelvis CT which showed mild left hydronephrosis. She had a pelvic/transvaginal ultrasound which showed the uterine f ibroid, but otherwise unremarkable pelvic ultrasound. She also had a renal ultrasound and it showed a slight fullness of the left upper renal collecting system and the calyces. The large bulky uterus with multiple masses probably multiple uterine fibroids. This can be further assessed with a followu p pelvic ultrasound. She also had a chest x-ray which showed no acute intrathoracic disease. Other specialties who assessed the patient includes Nephrology and the Oncology/Hematology Service as well as Obstetrics/Gynecology. Outpatient evaluation of uterine fibroids is encouraged as the patient has a history of heavy menstrual periods. They also suggested a trial of endometrial or progestin-conta ining IUD and plan future discussion of an endometrial ablation was also talked to patient about. Ac cording to Infectious Disease, eventually the patient will be transitioned to probably Prezcobix and Tivicay on an outpatient setting where she will need a recheck of her CD4 cell count, viral load, hep atitis serology, CPK and RPR. She was also discharged on supplemental iron once daily for approximat lorenzo 3 months or until her bleeding is under control. According to the Hematology Service, she might likely have a thalassemia A, which is causing her microcytosis despite a normal hemoglobin in the pas t. IMAGING: Include pelvic/transvaginal ultrasound, abdomen/pelvis CT, renal ultrasound and a chest x-r ay. CONSULTS: Gastroenterology, Infectious Disease, Oncology, BAGGAGE SECURITY CHECKER HOME MEDICATIONS: Etravirine 20 mg twice a day, Kaletra 2 tablets twice daily, raltegravir, potassiu m 400 mg twice daily, cefdinir 300 mg twice daily, ferrous sulfate 325 mg twice daily, clonidine 0.1 mg twice daily. DISCONTINUED MEDICATION: Lisinopril due to acute renal failure and Atripla. PHYSICAL EXAMINATION: She was examined on the day of discharge. VITAL SIGNS: Temperature 97.6 degree Fahrenheit, pulse 80, respiratory rate 16, oxygen saturation 98 % on room air, and blood pressure 111/67. GENERAL: Not in acute distress, sitting comfortably in bed. HEENT: Normocephalic, atraumatic. Pale conjunctivae, anicteric, EOMI, PERRLA. Moist mucous membran es. NECK: Supple, full range of movements. RESPIRATORY: Vesicular breath sounds bilaterally. No wheezes, rales or rhonchi. CARDIOVASCULAR: S1 and S2 only with regular rate and rhythm and no murmurs, rubs or gallops. ABDOMEN: Soft, nontender, nondistended. Bowel sounds positive. No organomegaly. MUSCULOSKELETAL: No edema. SKIN: Warm, dry, well perfused. NEUROLOGIC: Alert and well oriented to time, place and person. No focal deficits. PSYCHIATRIC: Normal mood and affect. LABORATORY DATA: Hemoglobin 8.3, WBC 2.6, platelet count 216. Sodium 137, potassium 4.2, chloride 1 01, carbon dioxide 24, anion gap 16, BUN 41, creatinine 1.48, glucose 90, calcium 9.5. Imaging as de scribed. CONDITION AT DISCHARGE: Stable and improved. PROCEDURES: None. DIET: Heart healthy. CARE GOALS: She will follow up with primary care physician within 1 week of discharge. She is also to follow up with Nephrology on an outpatient basis. Of note, she had a TTE while on admission which showed ejection fraction of 55%-60% and normal left ventricular function. 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 Activity: Resume as tolerated. Care goals. F ollow up with primary care physician. Discharge time, 65 minutes including chart review and documentation.
[2017-12-28 07:32] LABS: %CD4 (Helper/Inducer) 0.6 % (30.8-58.5); Absolute CD4 2 /uL (359-1519); Lymphocytes/Gated Cell Count 0.4 x10E3/uL (0.7-3.1); Total Lymphocyte 14 % (Not Estab.); WBC Total Count 3.2 x10E3/uL (3.4-10.8)
[2017-12-28 12:16] LABS: LOG10 HIV-1 RNA 5.009 (.)
--- NOTE | 2017-12-28 18:00 | PQF ---
KARISSA MCCRAY ASAD MD [id number] CLINICAL DOCUMENTATION CLARIFICATION FORM: POST DISCHARGE Addendum to original discharge summary date: ____ Late entry note date: __ DATE: 12/28/17 ATTN: DR. ZENG Please exercise your independent, professional judgment in responding to the clarification form. Clinical indicators are provided on the bottom of this form for your review Please check appropriate box(s): PLEASE SPECIFY CKD STAGE BELOW: [ x] Acute on Chronic Renal Failure please specify Stage of CKD ____3____ (see below) [ ] CKD without ARF/ZAHIDA please specify Stage of CKD [ ] ESRD [ ] Other diagnosis [ ] Unable to determine In addition, please specify: Present on Admission (POA): [ ] Yes [ ] No [ ] Unable to determine National Kidney Foundation Guidelines for CKD Staging Stage I Kidney damage with normal or increased GFR GFR > 90 Stage II Kidney damage with mildly decreased GFR GFR 60-89 Stage III Kidney damage with moderately decreased GFR GFR 30-59 Stage IV Kidney damage with severely decreased GFR GFR 16-29 Stage V Kidney failure GFR<15 ESRD End Stage Renal Disease On dialysis Acute Renal Failure/Acute Kidney Failure defined as: Increases in SCr by (>) 0.3 mg/dl within 48 hours OR- Increases in SCr by (>) 1.5 times baseline, known or presumed to have occurred within the prior 7 days OR- Urine volume < 0.5 ml/kg/hour for 6 hours (KDIGO supplement 2012 for RIFLE/CARMEN criteria) For continuity of documentation, please document condition throughout progress notes and discharge summary. Thank You. CLINICAL INDICATORS - SIGNS / SYMPTOMS / LABS Hypotension with renal FAILURE perfusion Urinalysis (epithelial cells, muddy brown granular casts, and/or coarse granular casts urine Na > 40) Metabolic acidosis Nausea / Vomiting / Diarrhea Lethargy or fatigue RISK FACTORS Dehydration UTI CREATININE 10 TREATMENTS: IV fluid challenge result Pharmacy / nephrology consult Correction of electrolytes / acidosis DOCUMENTATION OF : "ACUTE KIDNEY INJURY WITH CHRONIC KIDNEY DISEASE" (This form is maintained as a part of the permanent medical record) 2015 [employer] All Rights Reserved Kaitlynn [email or web address] [phone] MTDD
== END 2017-12-26 13:39 | disposition home or self-care (01) | DRG 683 ==
LOC: ERS 15:04 → 2NO 17:07
PROVIDERS: ADMIT Emergency Medicine; ATTEND Emergency Medicine
PROC: 30233N1 Transfusion of Nonautologous Red Blood Cells into Peripheral Vein, Percutaneous Approach (ICD-10-PCS; principal; 2017-12-24)
DX: N17.9 Acute kidney failure, unspecified (principal); E87.2 Acidosis; I95.9 Hypotension, unspecified; E87.1 Hypo-osmolality and hyponatremia; I08.3 Combined rheumatic disorders of mitral, aortic and tricuspid valves; N39.0 Urinary tract infection, site not specified; N18.3 Chronic kidney disease, stage 3 (moderate); Z79.899 Other long term (current) drug therapy; D63.8 Anemia in other chronic diseases classified elsewhere; E87.6 Hypokalemia; D25.9 Leiomyoma of uterus, unspecified; D50.9 Iron deficiency anemia, unspecified; N92.0 Excessive and frequent menstruation with regular cycle; N13.9 Obstructive and reflux uropathy, unspecified; I12.9 Hypertensive chronic kidney disease with stage 1 through stage 4 chronic kidney disease, or unspecified chronic kidney disease; Z21 Asymptomatic human immunodeficiency virus [HIV] infection status
CPT/HCPCS: 36415; 36430; 51701; 71045; 74176; 76770; 76856; 80048; 80053; 80069; 80306; 81003; 81015; 81025; 82274; 82550; 82607; 82728; 82746; 83540; 83550; 83605; 83630; 83690; 85014; 85018; 85025; 85048; 85060; 86361; 86706; 86780; 86803; 86850; 86900; 86901; 87040; 87086; 87324; 87340; 87449; 87536; 90471; 90670; 90682; 93306; 96361; 96374; A4353; G0008; G0009; J0696; J1644; J2916; J7050; P9016; Q0162; Q2036

== ENCOUNTER 2018-02-09 14:07 | Outpatient (CLI) | payer MEDICARE, MEDICAID | END 2018-02-09 14:08 | disposition home or self-care (01) | LOC: BICULT 14:07 | PROVIDERS: ATTEND Internal Medicine Nephrology | DX: N18.3 Chronic kidney disease, stage 3 (moderate) (principal) | CPT/HCPCS: 76770 ==

== ENCOUNTER 2018-09-21 12:18 | Emergency (ER) | payer MEDICAID, MEDICARE ==
[2018-09-21] MEDS ORDERED: Famotidine 20 MG TAB ONE (12:57)
[2018-09-21] MEDS ORDERED: predniSONE 20 MG TAB ONE (12:57)
[2018-09-21] MEDS ORDERED: diphenhydrAMINE 25 MG CAP ONE (12:57)
== END 2018-09-21 13:40 | disposition home or self-care (01) ==
LOC: ERS 12:18
DX: T78.40XA Allergy, unspecified, initial encounter (principal); S40.812A Abrasion of left upper arm, initial encounter; S40.811A Abrasion of right upper arm, initial encounter; S80.812A Abrasion, left lower leg, initial encounter; S80.811A Abrasion, right lower leg, initial encounter; I10 Essential (primary) hypertension; B20 Human immunodeficiency virus [HIV] disease; Z79.899 Other long term (current) drug therapy; X58.XXXA Exposure to other specified factors, initial encounter
CPT/HCPCS: 99283; J7506

== ENCOUNTER 2018-10-03 12:22 | Emergency (ER) | payer MEDICARE ==
[2018-10-03] MEDS ORDERED: diphenhydrAMINE 25 MG CAP ONE (12:41)
[2018-10-03] MEDS ORDERED: Dexamethasone 4 mg/ml Vial ONE (12:45)
[2018-10-03] MEDS ORDERED: Dexamethasone 4 MG TAB PO SCH (13:15)
[2018-10-03] MEDS ORDERED: Famotidine 20 MG TAB PO SCH (13:15)
== END 2018-10-03 13:50 | disposition home or self-care (01) ==
LOC: ERS 12:22
DX: T78.40XA Allergy, unspecified, initial encounter (principal); I10 Essential (primary) hypertension; B20 Human immunodeficiency virus [HIV] disease; Z79.899 Other long term (current) drug therapy
CPT/HCPCS: 99283; J1100; J8540

== ENCOUNTER 2018-10-10 09:55 | Emergency (ER) | payer MEDICARE ==
[2018-10-10] MEDS ORDERED: HYDROcodone/Acetaminophen 10/325 mg Tablet ONE (10:59)
== END 2018-10-10 11:05 | disposition home or self-care (01) ==
LOC: ERS 09:55
DX: H04.301 Unspecified dacryocystitis of right lacrimal passage (principal); I10 Essential (primary) hypertension; Z79.899 Other long term (current) drug therapy
CPT/HCPCS: 99283

== ENCOUNTER 2020-06-13 14:10 | Inpatient (IN) | payer MEDICARE, MEDICAID, OTHER ==
[~2020-06-13 14:10] MED LIST: Iopamidol-370 76% 500 ML 1 ML ONE
--- NOTE | 2020-06-13 14:31 | RAD ---
PORTABLE CHEST 1 VIEW: Date: 06/13/2020 Time: 1417 hours HISTORY: Chest pain. FINDINGS: Comparison made with exam of 12/23/2017. The heart size is normal. No focal areas of consolidation, pneumothoraces, or pleural effusions are s een. There is scoliosis of the spine. IMPRESSION: No acute process. POS: OFF
[2020-06-13 14:44] LABS: #Eosinphils 0.3 thou/uL (0.0-0.7); #Monocytes 0.5 thou/uL (0.11-0.59); #Neutrophils 6.9 thou/uL (1.40-6.50); %Basophils 0.4 % (0.0-1.0); %Eosinophils 3.6 % (0.0-10.0); %Lymphocytes 11.4 % (21.0-51.0); %Monocytes 5.7 % (0.0-10.0); %Neutrophils 78.9 % (42.0-75.0); Hemoglobin 11.7 g/dL (12.0-16.0); Mean Corpuscular HGB CONC 30.9 g/dL (32.0-36.0); Mean Corpuscular Hemoglobin 25.2 pg (27.0-31.0); Mean Corpuscular Volume 81.4 fL (78.0-98.0); Mean Platelet Volume 8.9 fL (7.4-10.4); Platelet Count 221 thou/uL (130-400); RBC Distribution Width 15.1 % (11.5-14.5); Red Blood Cell (RBC) Count 4.66 mill/uL (4.20-5.40); White Blood Cell (WBC) Count 8.7 thou/uL (4.8-10.8)
[2020-06-13 14:59] LABS: ALT (SGPT) 145 U/L (8-55); AST (SGOT) 158 U/L (5-34); Albumin 4.2 g/dL (3.5-5.0); Alkaline Phosphatase 108 U/L (40-110); Anion Gap 13 mmol/L (10-20); BUN (Urea Nitrogen) 8 mg/dL (7.0-18.7); Bilirubin, Total 0.7 mg/dL (0.2-1.2); CK (CPK) 230 U/L (29-168); Calc. Creatinine Clearance 0 mL/min (70-130); Calcium 9.4 mg/dL (7.8-10.44); Carbon Dioxide 26 mmol/L (22-29); Chloride 100 mmol/L (98-107); Estimated GFR-MDRD 80; Globulin 4.9 g/dL (2.4-3.5); Glucose 103 mg/dL (70-105); Potassium 3.8 mmol/L (3.5-5.1); Protein, Total 9.1 g/dL (6.0-8.3); Sodium 135 mmol/L (136-145)
--- NOTE | 2020-06-13 16:10 | CT ---
CT PULMONARY ANGIOGRAM WITH IV CONTRAST AND 3D POSTPROCESSIN06/13/20 HISTORY: Elevated D-dimer. Pain in the left leg. Status post left venous bypass last week. FINDINGS: There is inadequate opacification of the pulmonary arterial vasculature for satisfactory evaluation. Possibility of pulmonary embolism cannot be excluded on this exam. The thoracic aorta is better opaci fied without evidence of aneurysmal dissection. No pleural or pericardial effusions are seen. No pneumothoraces, focal areas of consolidation, lung nodules and masses are seen. There is dextrosco liosis of the thoracic spine. IMPRESSION: 1. Exam is nondiagnostic for pulmonary embolism. 2. No evidence of thoracic aortic aneurysm or dissection. POS: OFF
--- NOTE | 2020-06-13 17:01 | PDOC.HHP ---
Hospitalist HPI - History of Present Illness Chest pain, shortness of breath History of Present Illness: This is a 39-year-old female patient with a history of HIV on HAART, hypertension and fibroids who presents to the ED on account of worsening shortness of breath and chest pain. She notes that the chest pain and shortness of breath began about 3 days ago. Chest pain has been intermittent located mainly in her lower retrosternal and epigastric region, localized nonradiating is not worse with activity or alleviated by rest. She notes it is associated with indigestion and is relieved by some tcim-wwo-ojswnjt medication she takes. She cannot remember the name. She however has been previously really been short of breath and sometimes is unable to dress without feeling exhausted. She notes having gained weight gradually over the past month. She also admits to orthopnea and paroxysmal nocturnal dyspnea with pedal swelling. She denies any associated nausea or vomiting. Of note she has HIV for which she is on HAART and follows with Dr. Hanson. In the ED, initial assessment of chest paintroponin x1 was normal, BNP 68. X- ray showed no acute events, EKG showed left ventricular hypertrophy with repolarization abnormalities and sinus tachycardia. D-dimer was done which was elevated and thought she had CTA which was however nondiagnostic for PE. There were plans to repeat the CTA however because of her previous ZAHIDA, ED team decided to hold on for the moment. Hospitalist team was consulted to admit patient. Echocardiogram 2 years ago EF 55 to 60% with mildly dilated left atrium. Hospitalist ROS - Review of Systems Constitutional: reports: weakness. denies: fever, chills Respiratory: reports: shortness of breath, SOB with excertion. denies: cough Gastrointestinal: denies: nausea, vomiting, abdominal pain, diarrhea, constipation Genitourinary: denies: dysuria, frequency, incontinence, retention Neurological: denies: incoordination, change in speech, confusion, seizures Hospitalist History - Past Medical History Cardiac: reports: HTN Pulmonary: reports: HIV/AIDS Infectious Disease: reports: HIV - Past Surgical History Other Surgical History: Bilateral tubal ligation - Family History Other Family History: She refers to no significant family history - Social History Smoking Status: Never smoker (Alcohol history.) - Exam General - other findings: Patient is awake and alert. No acute distress. Eye: PERRL, anicteric sclera ENT: normocephalic atraumatic, no oropharyngeal lesions Heart: no murmur Heart - other findings: She is tachycardic, S1-S2 present and normal. No murmurs gallops or rubs Respiratory - other findings: Good air movement bilaterally. Tachypneic, occasional wheezes. Gastrointestinal - other findings: Abdomen full, no fluid thrill, nontender, bowel sounds present Extremities: no cyanosis, no edema Musculoskeletal - other findings: Scoliotic. Surgical scar at her back Hospitalist Results - Labs Result Diagrams: 06/14/20 09:57 06/14/20 04:35 Lab results: WBC 8.7 thou/uL (4.8-10.8) 06/13/20 14:20 Hgb 11.7 g/dL (12.0-16.0) L 06/13/20 14:20 Hct 38.0 % (36.0-47.0) 06/13/20 14:20 MCV 81.4 fL (78.0-98.0) 06/13/20 14:20 Plt Count 221 thou/uL (130-400) 06/13/20 14:20 Neutrophils % 78.9 % (42.0-75.0) H 06/13/20 14:20 Sodium 135 mmol/L (136-145) L 06/13/20 14:17 Potassium 3.8 mmol/L (3.5-5.1) 06/13/20 14:17 Chloride 100 mmol/L (98-107) 06/13/20 14:17 Carbon Dioxide 26 mmol/L (22-29) 06/13/20 14:17 BUN 8 mg/dL (7.0-18.7) 06/13/20 14:17 Creatinine 0.94 mg/dL (0.6-1.1) 06/13/20 14:17 Glucose 103 mg/dL (70-105) 06/13/20 14:17 Calcium 9.4 mg/dL (7.8-10.44) 06/13/20 14:17 Total Bilirubin 0.7 mg/dL (0.2-1.2) 06/13/20 14:17 AST 158 U/L (5-34) H 06/13/20 14:17 ALT 145 U/L (8-55) H 06/13/20 14:17 Alkaline Phosphatase 108 U/L (40-110) 06/13/20 14:17 Creatine Kinase 230 U/L (29-168) H 06/13/20 14:17 Troponin I 0.013 ng/mL (< 0.028) 06/13/20 14:20 B-Natriuretic Peptide 63.8 pg/mL (0-100) 06/13/20 14:20 Serum Total Protein 9.1 g/dL (6.0-8.3) H 06/13/20 14:17 Albumin 4.2 g/dL (3.5-5.0) 06/13/20 14:17 Hospitalist H&P A/P - Plan Plan: This is a 39-year-old female with a history of HIV, hypertension presented to the ED on account of chest pain and worsening shortness of breath with activity and dyspnea. Initial evaluation did not indicate acute coronary syndrome however d-dimer was elevated and an attempted CTA was nondiagnostic. We will admit her for observation overnight and cardiac/pulmonary evaluation Problems Chest pain This is atypical Unclear etiology with concerns for PE at the moment. Also concerns for ACS Initial troponin and EKG changes not suggestive of acute coronary syndromewe will risk factor being hypertension and HIV. This could be also GERD as it seems to be relieved by an dasr-set-lauznel antacid preparation. Given her meets criteria for cardiac hypertrophy and symptomatic dyspnea with proceed to do cardiac evaluation. We will monitor on telemetry Trend troponins Check UDS N.p.o. overnightin case she might need a stress test or other cardiology evaluation. Cardiology assessment in a.m. Elevated D-dimer with Possible pulmonary embolism Concern for PE She has no risk factors however tachypnea, dyspnea, chest pain and tachycardia concerning. She had non-determinate stick CTA however due to concerns for renal injury was not repeated. We will consider VQ scan in a.m giving her risk for ZAHIDA with repeat contrast exposure. She has previously been evaluated for ZAHIDA with Cr. as high as 10. Dyspnea Likely due to possible heart failure COVID is been ruled out. Possible heart failure Patient complains of dyspnea with exertion and swelling. Edema in her lower limbs however is very tenuous during my evaluationlikely trace BNP was within normal limits however she is obese We will follow-up on echocardiogram before making any further decisions. -Hepatitis possibly viral infection, heart failure of medication Hepatitis panes in 2018 was negative-will repeat trend Consider GI consult if no resolution with ongoing management Hypertension Start amlodipine Consider adding metoprolol for stress test Proteinuria Repeat urinalysis to reassess. GERD Trial of Protonix. Antacids Continue monitoring Hyponatremia Mild Scoliosis Status post back surgery with fixation HIV infection Fibroids DVT prophylaxisLovenox CODE STATUSfull code
[2020-06-13 18:14] LABS: Troponin I 0.021 ng/mL (< 0.028)
[2020-06-13] MEDS: Amlodipine 10 MG TAB PO SCH (20:32)
[2020-06-13] MEDS: Nitroglycerin 2% Ointment 1 INCH/1 GM Packet TOP SCH (20:33)
[2020-06-13 20:40] VITALS: BMI 35.1
[2020-06-13 21:15] LABS: Troponin I 0.011 ng/mL (< 0.028)
[2020-06-13] MEDS ORDERED: Aspirin 325 MG TAB PO SCH ×2 (22:00)
[2020-06-13 22:30] LABS: Amphetamine Not Detected (NotDetected); Barbiturates Screen Not Detected (NotDetected); Benzodiazepine Screen Not Detected (NotDetected); Cocaine Metabolite Screen Detected (NotDetected); Medtox Control Line Valid? VALID (VALID); Medtox Reader # READER 1; Methadone Not Detected (NotDetected); Methamphetamine Not Detected (NotDetected); Opiate Screen Detected (NotDetected); Oxycodone Screen Not Detected (NotDetected); Phencyclidine (PCP) Not Detected (NotDetected); THC/Cannabinoid Screen Not Detected (NotDetected); Tricyclic Screen Not Detected (NotDetected)
[2020-06-13] MEDS ORDERED: Ibuprofen 200 MG TAB PO PRN (23:17)
[2020-06-14 05:04] LABS: Hemoglobin A1c 5.6 % (4.0-6.0)
[2020-06-14] MEDS ORDERED: Enoxaparin Sodium 100 MG/ML SYRINGE SC SCH (05:15)
[2020-06-14 05:25] LABS: ALT (SGPT) 115 U/L (8-55); AST (SGOT) 128 U/L (5-34); Albumin 4.1 g/dL (3.5-5.0); Alkaline Phosphatase 97 U/L (40-110); Anion Gap 15 mmol/L (10-20); BUN (Urea Nitrogen) 10 mg/dL (7.0-18.7); Bilirubin, Total 0.7 mg/dL (0.2-1.2); Calc. Creatinine Clearance 118 mL/min (70-130); Calcium 9.5 mg/dL (7.8-10.44); Carbon Dioxide 22 mmol/L (22-29); Cardiac Risk 4.5 (Less than 4.5); Chloride 97 mmol/L (98-107); Cholesterol 166 mg/dl (< 200 Desired); Estimated GFR-MDRD 87; Globulin 4.8 g/dL (2.4-3.5); Glucose 104 mg/dL (70-105); HDL Cholesterol 37 mg/dL (>60 Neg Risk); LDL Cholesterol, Calculated 94 mg/dL; Potassium 3.7 mmol/L (3.5-5.1); Protein, Total 8.9 g/dL (6.0-8.3); Sodium 130 mmol/L (136-145); Triglycerides 176 mg/dL (Less than 150)
[2020-06-14] MEDS ORDERED: Enoxaparin Sodium 40 MG/0.4 ML SYRINGE SC SCH (09:00)
[2020-06-14] MEDS: Nitroglycerin 2% Ointment 1 INCH/1 GM Packet TOP SCH ×2 (09:13→20:22)
[2020-06-14] MEDS ORDERED: Heparin 25,000 units/D5W 500 ML IVPB SCH (09:30)
[2020-06-14] MEDS ORDERED: Carvedilol 3.125 MG TAB PO SCH ×3 (09:30→21:00)
[2020-06-14 10:08] LABS: Hemoglobin 11.9 g/dL (12.0-16.0); Platelet Count 189 thou/uL (130-400)
[2020-06-14] MEDS: Heparin 10,000 UNITS/ 10 ML VIAL SLOW IVP SCH ×2 (10:57→17:54)
[2020-06-14 13:58] LABS: SARS-CoV-2 MS2 Positive; SARS-CoV-2 N Gene Negative; SARS-CoV-2 S Gene Negative; SARS-CoV-2 by NAA Not Detected (NotDetected); SARS-CoV-2 orf1ab Negative
[2020-06-14 14:03] LABS: HBCM Index 0.31 S/CO (0-0.79); HBSAg Index 0.24 S/CO (0-0.99); Hep A IgM AB Non-Reactive (NonReactive); Hep A IgM S/CO 0.21 S/CO (0-0.79); Hep B Surf Ag Non-Reactive S/CO (NonReactive); Hep C IgG Ab Non-Reactive (NonReactive); Hep C Index 0.61 S/CO (0-0.79); Hepatitis B Core IgM Abs Non-Reactive (NonReactive)
--- NOTE | 2020-06-14 15:27 | NM ---
RADIONUCLIDE LUNG PERFUSION SCAN: 06/14/20 HISTORY: 39-year-old female with elevated D-dimer. RADIOPHARMACEUTICAL: 6.6 millicuries of technetium 99m - MAA given intravenously. FINDINGS: Correlation is made with the chest x-ray from yesterday. There is fairly homogeneous tracer distribution in the lung katz bilaterally without pleural based wedge shaped segmental or subsegmental perfusion defects. IMPRESSION: Normal perfusion scan. No evidence of pulmonary embolism. POS: WILFRIDA
--- NOTE | 2020-06-14 16:37 | PDOC.HOSPP ---
- Subjective Encounter Date: 06/14/20 Encounter Time: 15:00 Subjective: Patient was seen and examined in bed. She had episodes of difficulty breathing overnight with activity. She was started on oxygen. Started on Lovenox however changed to heparin this morning. She also had several diarrheal stools overnight his C dif Was ordered - Objective Vital Signs & Weight: Vital Signs (12 hours) Temp Pulse Resp BP Pulse Ox 06/14/20 16:09 98.9 F 131 H 24 H 137/78 99 06/14/20 11:21 99.8 F H 118 H 25 H 148/77 H 98 06/14/20 08:07 98.8 F 140 H 22 H 135/81 98 Weight Weight 192 lb 1.6 oz I&O: 06/13/20 06/14/20 06/15/20 06:59 06:59 06:59 Intake Total 550 Output Total 250 Balance 300 Result Diagrams: 06/14/20 09:57 06/14/20 04:35 Hospitalist ROS - Medication Medications: Active Medications Generic Name Dose Route Start Last Admin Trade Name Kristi PRN Reason Stop Dose Admin Amlodipine Besylate 10 mg 06/13/20 21:00 06/13/20 20:32 Norvasc PO 10 mg HS LATRICIA Administration Heparin Sodium (Porcine) 0 units 06/14/20 09:30 06/14/20 10:57 Heparin 1,000 Units/Ml (10 Ml) SLOW IVP 4,000 unit ASDIR LATRICIA Administration Protocol Heparin Sodium/Dextrose 500 mls @ 0 mls/hr 06/14/20 09:30 06/14/20 11:05 Heparin 25,000 Units/D5w IVPB 500 mls INF LATRICIA Administration Protocol Per Protocol Ibuprofen 200 mg 06/13/20 23:17 06/13/20 23:34 Motrin PO 200 mg Q4H PRN Administration Fever/Mild Pain Nitroglycerin 0.5 inch 06/13/20 21:00 06/14/20 09:13 Nitro-Bid 2% Ointment TOP Not Given BID LATRICIA Pantoprazole Sodium 40 mg 06/14/20 09:00 06/14/20 09:13 Protonix PO 40 mg DAILY LATRICIA Administration - Exam General - other findings: Patient awake and alert. No apparent distress. Heart - other findings: S1-S2 present and normal. No murmurs gallops or rubs. Respiratory - other findings: Entry adequate bilaterally. Occasional bilateral wheezing. Gastrointestinal - other findings: Soft, nontender, nondistended, bowel sounds present and normal. Extremities - other findings: No extremity edema noted. Hosp A/P - Plan This is a 39-year-old female with a history of HIV admitted on account of chest pain and dyspnea on exertion. Initial concerns for PE have been ruled out with perfusion scan. Currently having cardiac work-up. Urine drug screen was positive for cocaine. Chest pain No clear etiology at the moment. Troponins negative x3, no ST or T wave changes concerning for ACS. PE ruled out with perfusion scan Echocardiogram shows diastolic heart failure Cardiology to have stress test today Possible GERDon Protonix. Cardiology following. Dyspnea PE ruled out with perfusion scan Likely due to heart failure Echocardiogram shows diastolic dysfunctionhe may be having intermittent flashes. Also urine positive for cocaine which could further damage her heart. We will continue management on oxygen therapy and work-up for heart failure. Diastolic heart failure Noted on echo He have intermittent acute exacerbation Monitor closely on telemetry Appreciate cardiology input. Diarrhea C. difficile negative We will give Imodium Hepatitis Transaminases elevated Hepatitis panel ordered Also be due to diastolic heart failure GI consult if no etiology noted or worsening. We will monitor. HIV infection Continue HAART on Bactrim Scoliosis Status post back surgeries fixation Hyponatremia Proteinuria repeat ua in am DVT prophylaxisLovenox CODE STATUSfull
[2020-06-14 17:24] LABS: INR-International Normal Ratio 1.4; Prothrombin Time 16.8 sec (12.0-14.7)
--- NOTE | 2020-06-14 17:52 | CON ---
DATE OF CONSULTATION: PRIMARY CARE DOCTOR: Rolanda Neves MD PRIMARY GEODESIST: Deepti Waldron MD PRIMARY INFECTIOUS DOCTOR: Dr. Hanson. REASON FOR CARDIOLOGY CONSULT: Chest pain. HISTORY OF PRESENT ILLNESS: Ms. Heard is a very present 39-year-old female with significant history of HIV positive, sclerosis, hypertension, anemia. The patient was doing relatively well until 3 days ago when she started having shortness of breath and sharp and pressure at mediastinal area. Then, the patient took Tylenol 4, which helped for the sharp pain, but she continued to have a pressure in the chest. She used to walk 1 block like 15 minutes x2 daily, every day without any problems or any difficulties. However, since 3 days ago, she could not even walk to the mailbox, which is a few feet away from her house. Her systolic blood pressure used to be around 100. However, from Wednesday, her blood pressure has been 150s to 160s on the systolic side. She has not seen any leader writer before in the past. She had echocardiogram done and the result is pending at this moment. She has COVID-19 test and result is pending at this moment also. MEDICAL HISTORY: HIV positive since 2012. She has seen by Dr. Hanson. Last seen was more than over one year. Her medication has been prescribed by her primary care doctor and she has complained about her medication. Sclerosis with surgery in the past, hypertension, anemia. SURGICAL HISTORY: Sclerosis surgery x2 in 1995, tubal ligation in 2001. FAMILY HISTORY: There is no significant cardiac related family history in her family except they have diabetes in paternal side. SOCIAL HISTORY: The patient is single. The patient has 3 children, who are living well. The patient denied any tobacco abuse. She drinks at least 3 beers a day 3 times a week. She denied illicit drug abuse, although the patient's blood test was positive for cocaine use. She used to walk a total of 30 minutes a day until 3 days ago. MEDICATIONS: 1. Bactrim DS one tablet on Wednesday, Wednesday, Wednesday. 2. Biktarvy 50/200/25 one tablet daily. 3. Metoprolol succinate 100 daily. 4. Ferrous sulfate 325 mg once a day. ALLERGIES: NO KNOWN DRUG ALLERGIES. REVIEW OF SYSTEMS: 12-point review of systems is negative unless otherwise mentioned in HPI. PHYSICAL EXAMINATION: VITAL SIGNS: Blood pressure 135/81, pulse is 130 to 140, temperature 98.8, respiratory rate 22, O2 saturation 98% on room air. GENERAL: The patient is alert and oriented x4, in acute distress, especially when she was talking, she started having shortness of breath. HEAD: Normocephalic, atraumatic. EYES: Extraocular muscle movement intact. ENT AND MOUTH: Oral and nasal mucosa moist without lesion. NECK: Supple. Normal range of motion. No JVD. Normal carotid pulse. No bruit or thrill at this moment. RESPIRATORY: Clear to auscultate, but diminished at the bases. CARDIOVASCULAR: Regular rate and rhythm. Normal S1 and S2. No S3 or S4. No significant murmur, hives, or thrill noted. 2+ pulses in the bilateral upper extremities and diminished in lower extremities. The patient denied claudication. ABDOMEN: Soft, nontender. No mass to palpate. Bowel sounds are present, but hypoactive. EXTREMITIES: The patient does not have edema in the lower extremities. SKIN: Warm and dry. No lesion, rash, or erythema noted. MUSCULOSKELETAL: The patient able to move all extremities. The patient denied new claudication. NEUROLOGIC: The patient is alert and oriented x4, nonfocal. PSYCHIATRIC: The patient's mood is appropriate. LABORATORY DATA: WBC 8.7, hemoglobin 11.9, hematocrit 37.9, platelets 189. D-dimer is 1.70. Sodium 130, potassium 3.7, BUN 10, creatinine 0.87. Hemoglobin A1c was 5.6. AST 128, ALT 115. Creatine kinase at 230. Troponin is 0.013, 0.021, and 0.011. BNP is 63.8. Serum total protein is 8.9, albumin 4.1, globulin 4.8, total cholesterol 166, triglycerides 176, HDL is 37, and LDL is 94. CTA of thoracic and chest showing no evidence of thoracic aortic aneurysm or dissection or pulmonary embolism. ASSESSMENT AND PLAN: 1. Chest pain. The patient's symptom has improved with Tylenol 4 according to the patient. The patient has tachycardia at this moment. The patient's troponin level is negative x3 and the patient's 12-lead EKG has not showed any ST-segment change or T-wave inversion. At this moment, we would like to hold stress test at this moment due to that very tachycardia. Heart rate is going up to at this moment 110 to 120 after the patient received the carvedilol 3.125 mg twice a day. Once heparin drip is started from this morning for elevated D-dimer, although the patient's CTA chest showing no evidence of pulmonary embolism. The patient had echocardiogram done today and the result is pending this morning. We would continue to monitor on the telemetry and at this moment, she is on aspirin 81 mg once a day, carvedilol 3.125 mg twice a day. 2. Tachycardia. The carvedilol was started from this morning. However, the patient's heart rate has been more than 110 to 120s at this moment. We would like to continue to monitor. We might like to discontinue amlodipine too and increase carvedilol dose for tachycardia. 3. Elevated liver function results. The patient's BNP has been in the normal range. However, the patient is having shortness of breath when she starts talking. She may need any GI consult for this patient for the elevated liver function result if the patient's echocardiogram is normal. 4. Hypertension. The patient's blood pressure is stable at this moment with current medication. 5. Human immunodeficiency virus positive, which is deferred to the primary care doctor. Thank you very much for Cardiology consult request to participate in the care of this patient. We will follow along the patient's care team and make further recommendations as appropriate. Job ID: [id number]
[2020-06-14] MEDS ORDERED: Loperamide HCl 2 MG CAP PO PRN (19:29)
--- NOTE | 2020-06-14 19:39 | CON ---
DATE OF CONSULTATION: 06/14/2020 INDICATIONS FOR CONSULTATION: A 39-year-old female with tachycardia. Please refer to the notes already dictated by my nurse practitioner. An unfortunate 39-year-old female who has been found to have HIV positive for several years now. She has been treated by Dr. Hanson. She presented to the hospital after complaining of shortness of breath and had some chest pain. Her enzymes are negative for myocardial infarction. Her EKG does not show any significant EKG changes to indicate acute ischemia. She did have some T-wave inversions in the lateral leads, but also has borderline hypertension on the echocardiogram, which was performed today, which also by the way did show what appeared to be a normal left ventricular systolic function, but somewhat difficult to determine since she is so tachycardic during the evaluation. She says that her heart rate is only became fast since she has been in the hospital; however, when she arrived in the emergency room, the 1st EKG does show a heart rate of 105. At this time, her heart rate has been in the 110s to 130 beats per minute, but does appear to be sinus rhythm. She has been ruled out for a pulmonary embolus. Her enzymes are negative for myocardial infarction and she has no other acute indications of any other significant problems at this time. She then was found to have cocaine-positive urine, but denied any history of known, though she had any type of contact with cocaine recently or in the past. I am uncertain as to why she is tachycardic, but we will obtain a thyroid function study to see whether or not she may be hyperthyroid. She does not appear to be hyperthyroid and said that she had actually gained 50 pounds in the last 2 weeks and lost about 10 or 15 pounds since she had been in the hospital. She has not had any other congestive heart failure symptoms. Chest x-ray did not show any acute changes that would indicate congestive heart failure or pulmonary effusions. There was no acute processes noted. Also, the CT scan did not show any evidence of a pulmonary embolus. At this time, we will continue the beta blockers as noted by my nurse practitioner, and we will also check the thyroid function and hopefully she will improve as far as her chest pain is concerned. We will plan on a stress test once the heart rate is under better control, but be unlikely that she would have any significant underlying coronary artery disease with her tachycardia. No significant EKG changes to indicate ischemia. We will be more than happy to continue to follow the patient with you throughout her hospital hospitalization. PHYSICAL EXAMINATION: VITAL SIGNS: On evaluation, her vital signs showed a blood pressure of 137/78; heart rate is anywhere between 110 to 130, but is sinus tachycardia; temperature is 98.9 and earlier today she was 99.8; respiratory rate is about 24; and O2 saturation 99% on room air. HEENT: Unremarkable. CHEST: Clear to auscultation without rales, rhonchi, or wheezing. CARDIOVASCULAR: Tachycardia, which is regular. There were no significant murmurs, heaves, thrills, bruits, or rubs. ABDOMEN: Obesity. Positive bowel sounds are present. EXTREMITIES: No clubbing, cyanosis, or edema. NEUROLOGIC: She appears to be fully intact. IMPRESSION: 1. Sinus tachycardia of uncertain etiology. We will check the thyroid function to see if she is hypothyroid. There is no indication of pulmonary embolus. No indication of myocardial infarction. 2. Chest pain. We will wait for the heart rate to become under better control with beta blockers. I will also evaluate the thyroid function, and once the heart rate is under better control, we will suggest she undergo stress testing to rule out evidence of underlying ischemia as far as her other medical problems are concerned. They were outlined by the nurse practitioner and by the hospitalist. Job ID: [id number]
[2020-06-14] MEDS: Aspirin 81 mg Enteric Coated Tablet PO SCH (20:21)
[2020-06-14] MEDS: Amlodipine 10 MG TAB PO SCH (20:21)
[2020-06-14] MEDS: Carvedilol 6.25 MG TAB PO SCH (20:22)
[2020-06-15] MEDS: Nitroglycerin 2% Ointment 1 INCH/1 GM Packet TOP SCH ×2 (09:02→20:24)
[2020-06-15] MEDS: Bictegrav/Emtricit/Tenofov Ala [Biktarvy 50-200-25 Mg Tablet PO SCH (09:03)
--- NOTE | 2020-06-15 10:08 | PDOC.HOSPP ---
- Subjective Encounter Date: 06/15/20 Encounter Time: 07:00 Subjective: Patient was seen for follow-up regarding chest pain. Reports feeling better. - Objective Vital Signs & Weight: Vital Signs (12 hours) Temp Pulse Resp BP Pulse Ox 06/15/20 08:59 100 06/15/20 08:18 97.8 F 117 H 16 146/82 H 100 06/15/20 07:23 98.1 F 114 H 128/73 06/15/20 03:25 98.1 F 113 H 18 129/64 98 06/14/20 23:50 98.6 F 118 H 18 139/63 97 Weight Weight 190 lb 14.4 oz I&O: 06/14/20 06/15/20 06/16/20 06:59 06:59 06:59 Intake Total 550 1373 Output Total 250 7 Balance 300 1366 Result Diagrams: 06/14/20 09:57 06/14/20 04:35 Additional Labs: Labs and MAR reviewed by me EKG Reviewed by me: Yes (Telemetry: Sinus tachycardia) Hospitalist ROS - Review of Systems Cardiovascular: denies: chest pain, palpitations, orthopnea, paroxysmal noc. dyspnea, edema, light headedness Gastrointestinal: denies: nausea, vomiting, abdominal pain, diarrhea, constipation, melena, hematochezia - Medication Medications: Active Medications Generic Name Dose Route Start Last Admin Trade Name Freq PRN Reason Stop Dose Admin Amlodipine Besylate 10 mg 06/13/20 21:00 06/14/20 20:21 Norvasc PO 10 mg HS LATRICIA Administration Aspirin 81 mg 06/14/20 21:00 06/14/20 20:21 Ecotrin PO 81 mg 2100 LATRICIA Administration Carvedilol 6.25 mg 06/14/20 21:00 06/14/20 20:22 Coreg PO 6.25 mg BID LATRICIA Administration Ibuprofen 200 mg 06/13/20 23:17 06/13/20 23:34 Motrin PO 200 mg Q4H PRN Administration Fever/Mild Pain Loperamide HCl 2 mg 06/14/20 19:29 06/14/20 20:21 Imodium PO 2 mg PRN PRN Administration Diarrhea/Loose Stools Nitroglycerin 0.5 inch 06/13/20 21:00 06/15/20 09:02 Nitro-Bid 2% Ointment TOP Not Given BID LATRICIA Pantoprazole Sodium 40 mg 06/14/20 09:00 06/14/20 09:13 Protonix PO 40 mg DAILY LATRICIA Administration Bictegrav/Emtricit/ 1 each 06/15/20 09:00 06/15/20 09:03 Tenofov Ala [ PO Not Given Biktarvy 50-200-25 DAILY LATRIICA Mg Tablet Sodium Chloride 10 ml 06/14/20 21:00 06/15/20 09:02 Flush - Normal Saline IVF 10 ml Q12HR LATRICIA Administration - Exam General - other findings: Obese Eye: anicteric sclera ENT: normocephalic atraumatic Neck: supple, symmetric Heart: RRR Respiratory: CTAB Gastrointestinal: soft, non-tender Extremities: no cyanosis Skin: no rashes Psychiatric: normal affect, normal behavior Hosp A/P - Plan Chest pain Appreciate cardiology service input. Likely stress test when medically more stable. Sinus tachycardia improved. Dyspnea VQ scan negative. Diastolic heart failure Noted on echo He have intermittent acute exacerbation Monitor closely on telemetry Appreciate cardiology input. Diarrhea C. difficile negative We will give Imodium Hepatitis Consult GI Abdo US HIV infection Continue HAART on Bactrim Scoliosis Status post back surgeries fixation Hyponatremia Proteinuria
[2020-06-15] MEDS: Carvedilol 6.25 MG TAB PO SCH ×2 (10:31→20:24)
--- NOTE | 2020-06-15 10:36 | PDOC.CPN ---
- Subjective Date: 06/15/20 Time: 10:49 Interval history: The pt seen and examined. No overnight events. No cardiac complaints for now - Objective Allergies/Adverse Reactions: Allergies Allergy/AdvReac Type Severity Reaction Status Date / Time No Known Drug Allergies Allergy Verified 12/24/17 05:43 Visit Medications: Current Medications Amlodipine Besylate (Norvasc) 5 mg PO HS [facility] Aspirin (Ecotrin) 81 mg PO 2100 [facility] Last Admin: 06/14/20 20:21 Dose: 81 mg Carvedilol (Coreg) 12.5 mg PO BID [facility] Carvedilol (Coreg) 6.25 mg PO NOW [facility] Stop: 06/15/20 13:00 Ibuprofen (Motrin) 200 mg PO Q4H PRN PRN Reason: Fever/Mild Pain Last Admin: 06/13/20 23:34 Dose: 200 mg Loperamide HCl (Imodium) 2 mg PO PRN PRN PRN Reason: Diarrhea/Loose Stools Last Admin: 06/14/20 20:21 Dose: 2 mg Nitroglycerin (Nitro-Bid 2% Ointment) 0.5 inch TOP BID [facility] Last Admin: 06/15/20 09:02 Dose: Not Given Pantoprazole Sodium (Protonix) 40 mg PO DAILY [facility] Last Admin: 06/15/20 10:31 Dose: 40 mg Bictegrav/Emtricit/Tenofov Ala [ Biktarvy 50-200-25 Mg Tablet 1 each PO DAILY [facility] Last Admin: 06/15/20 09:03 Dose: Not Given Sodium Chloride (Flush - Normal Saline) 10 ml IVF Q12HR [facility] Last Admin: 06/15/20 09:02 Dose: 10 ml Sodium Chloride (Flush - Normal Saline) 10 ml IVF PRN PRN PRN Reason: Saline Flush Trimethoprim/Sulfamethoxazole (Bactrim Ds) 1 tab PO F [facility] Vital Signs & Weight: Vital Signs Temp Pulse Resp BP Pulse Ox 06/15/20 08:59 100 06/15/20 08:18 97.8 F 117 H 16 146/82 H 100 06/15/20 07:23 98.1 F 114 H 128/73 06/15/20 03:25 98.1 F 113 H 18 129/64 98 06/14/20 23:50 98.6 F 118 H 18 139/63 97 Weight 190 lb 14.4 oz - Physical Exam General: alert & oriented x3 HEENT: mucus membranes moist Neck: supple neck Cardiac: regular rate and rhythm, S1/S2 Lungs: decreased breath sounds Neuro: cranial nerve 2-12 intact Extremities: no edema - Labs Result Diagrams: 06/14/20 09:57 06/14/20 04:35 Troponin/CKMB Troponin I 0.011 ng/mL (< 0.028) 06/13/20 20:42 - Telemetry Sinus rhythms and dysrhythmias: sinus tachycardia - Assessment/Plan Assessment/Plan: 1. Chest pain in adult - Stress test will be tomorrow due to s/p VQ scan yesterday; Asymptomatic for now 2. ST with unknown etiology - TSH today was normal; will increase Coreg to 12.5mg BID from this AM (will change her BBlocker from Metoprolol to Coreg for diastolic HF management) 3. Acute on Chronic Diastolic HF - stable; on coreg; Will stop Norvasc and change to Losartan 25mg qd; 4. Elevated LFT - GI consult 5. HTN - stable 6. HIV - Continue HAART on Bactrim 7. Scoliosis with hx of sx x2 in past 8. Hyponatremia - will start Fluid restriction 1500ml/day 9. tachycardia. This is sinus tachycardia. Uncertain etiology. Coreg increased. KIZZY reviewed * Echo on 06/14/2020 with EF 60-65%, grade I dd, mild MR and TR Pt. seen and eval. by me. I agree with the A/P by the SUSTAINABILITY COACH. The pt. is feeling better today. Plan for stress test tomorrow. Chest clear. RRR. No edema.
[2020-06-15] MEDS ORDERED: Carvedilol 6.25 MG TAB PO SCH (10:45)
--- NOTE | 2020-06-15 14:36 | ULT ---
ULTRAOSUND ABDOMEN: 06/15/20 HISTORY: Abnormal LFTs. FINDINGS: The liver demonstrates increased echogenicity consistent with fatty infiltration without focal mass o r intrahepatic ductal dilatation. The spleen, pancreas, gallbladder, kidneys and visualized portions of the aorta and IVC are unremarkable. No free fluid is seen. The common duct measures 3 mm in diamet er. No free fluid is seen. IMPRESSION: 1. Fatty liver. 2. No evidence of cholelithiasis. POS: OFF
[2020-06-15] MEDS: Aspirin 81 mg Enteric Coated Tablet PO SCH (20:25)
[2020-06-15] MEDS ORDERED: Amlodipine 5 MG TAB PO SCH (21:00)
[2020-06-15] MEDS ORDERED: Losartan 25 MG TAB PO SCH (21:00)
--- NOTE | 2020-06-15 22:41 | CON ---
DATE OF CONSULTATION: 06/15/2020 REASON FOR CONSULTATION: Elevated LFTs. CONSULTING PROVIDER: Dr. Darryl Faith. HISTORY OF PRESENT ILLNESS: The patient is a 39-year-old female, with past medical history of hypertension; uterine fibroids; chronic anemia; scoliosis; and HIV, on HAART therapy, presenting with complaints of shortness of last breath, chest pain, and elevated liver function tests. The patient was initially admitted to the hospital on June 13, 2020, with complaints of increased shortness of breath and chest pain, especially with shortness of breath on exertion. She was subsequently admitted to the hospital and underwent cardiology evaluation with no significant findings thus far. However, during the course of the hospitalization, she was noted to have moderately elevated LFTs concerning for an underlying liver pathology. Upon speaking with the patient, she was first told that she had elevated liver function tests around 3 to 4 years ago, but did not remember what this was in relation to. She also endorses increased right flank pain that has been occurring intermittently for the last six months characterized as a sharp/stabbing type sensation, is intermittent, nonradiating, will last for approximately 10 minutes in duration with spontaneous resolution and reaches a severity of 7/10 to 8/10. This pain has been worse with bending over and twisting movements and better with having a bowel movement. Otherwise, she denies any other associated symptoms associated with her abdominal pain other than her shortness of breath and chest pain, but they are not necessarily connected to each other. Upon further evaluation/interview with the patient, she states that she has been compliant with her HIV medications as an outpatient with the patient starting Biktarvy approximately 2 years ago and Atripla prior to that for years. Otherwise, the patient states that she has been having increased menometrorrhagia occurring once monthly in relation to her menstrual cycle. She also complains of increased diarrhea that has only occurred since admission having anywhere between 10 and 12 semi-solid liquid bowel movements over the last 24 hours. However, she was given loperamide with significant improvement of this diarrhea. Otherwise, she denies any nausea, vomiting, fevers, chills, hematemesis, melena, hematochezia, dysphagia, odynophagia, constipation, jaundice, encephalopathy, lower extremity edema, or ascites. REVIEW OF SYSTEMS: A 10-category review of systems was obtained with all responses negative, except for the pertinent positives as listed in the HPI. PAST MEDICAL HISTORY: As per HPI. PAST SURGICAL HISTORY: Bilateral tubal ligation. FAMILY HISTORY: Denies any GI malignancies. SOCIAL HISTORY: Denies any tobacco or illicit drug use. However, she does drink approximately 3 to 4 beers around 3 to 4 times per week with occasional liquor intermixed with this. OUTPATIENT MEDICATIONS: Reviewed. ALLERGIES: NO KNOWN DRUG ALLERGIES. PHYSICAL EXAMINATION: VITAL SIGNS: Temperature 97.8, pulse 111, blood pressure 125/78, respiratory rate 16, and saturating 100% on room air. GENERAL: The patient is sitting at bedside, in no acute distress. Alert and oriented x4. HEENT: Normocephalic and atraumatic. NECK: Supple. No JVD or scleral icterus noted. CARDIOVASCULAR: Tachycardic rate, but regular rhythm with no discernible murmurs, gallops, or rubs. RESPIRATORY: Clear to auscultation bilaterally with no discernible wheezes or rales. ABDOMEN: Normoactive bowel sounds. Soft, nontender, and nondistended. Mild tenderness to palpation along the lower right ribs. EXTREMITIES: No cyanosis, clubbing, or edema. LABORATORY DATA: CBC with a white blood cell count of 8.7, hemoglobin 11.9, hematocrit 37.9, and platelets 189. INR 1.4. BNP 63. Chemistry with a sodium of 130, potassium 3.7, chloride 97, CO2 of 22, BUN 10, creatinine 0.87, glucose 104, AST 128, ALT 115, alkaline phosphatase 97, total bilirubin 0.7, and albumin 4.1. TSH 4.33. Acute hepatitis panel was negative and drug of abuse screen was positive for cocaine and opiates. IMAGING DATA: The patient had a right upper quadrant ultrasound performed on June 15, 2020, which showed increased echogenicity within the liver parenchyma consistent with fatty infiltration without focal mass or intrahepatic ductal dilatation. No free-fluid was seen with the common bile duct measuring 3 mm in diameter. There was also no evidence of cholelithiasis. ASSESSMENT AND PLAN: The patient is a 39-year-old female, with past medical history of hypertension; uterine fibroids; chronic anemia; scoliosis; and human immunodeficiency virus, on HAART therapy, presenting with elevated LFTs. Elevated LFTs. Upon chart review, the patient has been noted to have elevated liver function tests as far back as 2017 with levels then roughly similar to what they are now. From a clinical standpoint, the patient does not describe having any symptoms consistent with a sequelae of chronic liver disease (hematemesis, ascites, lower extremity edema, encephalopathy) with acute hepatitis panel obtained thus far negative for chronic viral hepatitis. However, upon review of the patient's medication list, she had been on Atripla and now more recently Biktarvy as part of treatment for her human immunodeficiency virus, both of which could generate elevated LFTs in a hepatocellular pattern, which is indicated on her labs during this admission. However, right upper quadrant ultrasound obtained today also raises the question of nonalcoholic fatty liver disease/alcoholic steatohepatitis contributing to the current AST/ALT elevation. Currently, the differential could include medication-induced liver injury (HAART therapy), fatty liver, autoimmune hepatitis, Jose disease, alpha-1 antitrypsin deficiency, hemochromatosis and/or GI neoplasm (much less likely), or cocaine abuse. RECOMMENDATIONS: 1. Strongly encourage the patient about cocaine cessation (although the patient adamantly denies using this particular illicit drug). 2. We would attempt to optimize her cardiac status as tachycardia could potentially generate low flow/ischemic-type injury to the liver, although this is less likely given the chronic nature of her elevated LFTs. 3. We would obtain a full liver workup for evaluation of any underlying liver pathology. 4. We would obtain a CD4 count and HIV viral load in case it is causing her elevated LFTs. 5. If the above is negative, then the more likely explanation would be nonalcoholic fatty liver disease, in which case dietary measures and regimented exercise with the goal of weight loss would be recommended. We will continue to follow. Please call with any questions. Job ID: [id number]
[2020-06-16 04:51] LABS: #Eosinphils 0.5 thou/uL (0.0-0.7); #Lymphocytes 1.3 thou/uL (1.20-3.40); #Monocytes 0.6 thou/uL (0.11-0.59); #Neutrophils 2.2 thou/uL (1.40-6.50); %Eosinophils 11.2 % (0.0-10.0); %Lymphocytes 28.7 % (21.0-51.0); %Monocytes 12.4 % (0.0-10.0); %Neutrophils 46.7 % (42.0-75.0); Hemoglobin 11.3 g/dL (12.0-16.0); Mean Corpuscular HGB CONC 31.2 g/dL (32.0-36.0); Mean Corpuscular Hemoglobin 25.4 pg (27.0-31.0); Mean Corpuscular Volume 81.6 fL (78.0-98.0); Mean Platelet Volume 8.8 fL (7.4-10.4); Platelet Count 209 thou/uL (130-400); RBC Distribution Width 14.3 % (11.5-14.5); Red Blood Cell (RBC) Count 4.46 mill/uL (4.20-5.40); White Blood Cell (WBC) Count 4.7 thou/uL (4.8-10.8)
[2020-06-16 05:11] LABS: ALT (SGPT) 124 U/L (8-55); AST (SGOT) 145 U/L (5-34); Albumin 3.8 g/dL (3.5-5.0); Alkaline Phosphatase 100 U/L (40-110); Anion Gap 16 mmol/L (10-20); BUN (Urea Nitrogen) 16 mg/dL (7.0-18.7); Bilirubin, Total 0.4 mg/dL (0.2-1.2); Calc. Creatinine Clearance 96 mL/min (70-130); Calcium 9.2 mg/dL (7.8-10.44); Carbon Dioxide 22 mmol/L (22-29); Chloride 100 mmol/L (98-107); Estimated GFR-MDRD 69; Globulin 4.6 g/dL (2.4-3.5); Glucose 106 mg/dL (70-105); Iron 41 ug/dL (50-170); Iron Binding Capacity, Total 331 mcg/dL (265-497); Potassium 3.3 mmol/L (3.5-5.1); Protein, Total 8.4 g/dL (6.0-8.3); Sodium 135 mmol/L (136-145)
[2020-06-16] MEDS ORDERED: ADENOSINE 60 MG/20 ML VIAL ONE (11:13)
[2020-06-16 11:45] VITALS: BP 133/78; TEMP 97.5
[2020-06-16] MEDS: Carvedilol 6.25 MG TAB PO SCH (11:52)
[2020-06-16] MEDS: Nitroglycerin 2% Ointment 1 INCH/1 GM Packet TOP SCH (11:53)
[2020-06-16] MEDS: Bictegrav/Emtricit/Tenofov Ala [Biktarvy 50-200-25 Mg Tablet PO SCH (11:54)
--- NOTE | 2020-06-16 12:10 | NM ---
EXAM: CARDIAC SPECT HISTORY: Chest pain, hypertension TECHNIQUE: A myocardial perfusion scan was performed using the single isotope 1 day protocol with connie hnetium 99m sestamibi. [10 mCi] was injected intravenously for the rest exam followed by 30 mCi for the stress study. Pharmacologic stress with adenosine was monitored and interpreted by Justo Altamirano, nurse practitioner FINDINGS: Homogeneous tracer distribution is seen in the myocardial segments on stress and rest image s without fixed or reversible defects. Gated SPECT LVEF: 63% Wall motion exam: Normal IMPRESSION: Normal myocardial perfusion scan
--- NOTE | 2020-06-16 16:17 | PDOC.CPN ---
- Subjective Date: 06/16/20 Time: 16:44 Interval history: The pt seen and examined. No overnight events. No cardiac complaints. - Objective Allergies/Adverse Reactions: Allergies Allergy/AdvReac Type Severity Reaction Status Date / Time No Known Drug Allergies Allergy Verified 12/24/17 05:43 Vital Signs & Weight: Vital Signs Temp Pulse Resp BP Pulse Ox 06/16/20 11:44 97.5 F L 98 18 133/78 100 06/16/20 08:33 97.6 F 84 16 103/68 100 06/16/20 04:36 97.6 F 92 20 118/63 97 Weight 191 lb - Physical Exam General: alert & oriented x3 HEENT: mucus membranes moist Neck: supple neck Cardiac: regular rate and rhythm, S1/S2 Lungs: clear to auscultation Extremities: no edema - Labs Result Diagrams: 06/16/20 04:39 06/16/20 04:39 Troponin/CKMB Troponin I 0.011 ng/mL (< 0.028) 06/13/20 20:42 - Telemetry Sinus rhythms and dysrhythmias: sinus tachycardia - Assessment/Plan Assessment/Plan: 1. Chest pain in adult - Stress test showed no ischemia; the pt is asymptomatic ; 2. ST with unknown etiology - TSH today was normal; On Coreg to 12.5mg BID ( will change her BBlocker from Metoprolol to Coreg for diastolic HF management) 3. Acute on Chronic Diastolic HF - stable; on coreg and Losartan 25mg qd; 4. Elevated LFT - GI consult done 5. HTN - stable 6. HIV - Continue HAART on Bactrim 7. Scoliosis with hx of sx x2 in past 8. Hyponatremia - will start Fluid restriction 1500ml/day 9. tachycardia. This is sinus tachycardia. Uncertain etiology. Coreg increased. MAR reviewed * Echo on 06/14/2020 with EF 60-65%, grade I dd, mild MR and TR * the pt will f/u with Dr Waldron' office in 2-4 wks
[2020-06-16 16:44] LABS: ANA Symphony (Qualitative) Negative (Negative); ANA Symphony (Quantitative) 0.3 Ratio (< 0.7 Negative); EliA Vaculitis New Method **** NEW METHOD ****; dsDNA IgG Antibody 1.6 IU/mL (<10 Negative)
[2020-06-17] MEDS ORDERED: Sulfameth/Trimethoprim DS 800-160mg TAB PO SCH (09:00)
[2020-06-17 12:37] LABS: %CD4 (Helper/Inducer) 2.9 % (30.8-58.5); Absolute CD4 35 /uL (359-1519); Lymphocytes/Gated Cell Count 1.2 x10E3/uL (0.7-3.1); Total Lymphocyte 30 % (Not Estab.)
--- NOTE | 2020-06-18 10:07 | PQF ---
CLINICAL DOCUMENTATION CLARIFICATION FORM: Dear : Marcell Andrews MD Date / Time: 06/18/2020 Please exercise your independent, professional judgment in responding to the clarification form. Clinical indicators are provided on the bottom of this form for your review Please check appropriate box(es): [ ] Chest pain due to CHF exacerbation [ ] Chest pain due to Sinus tachycardia [ x ] Other diagnosis __chest pain due to musculoskeletal etiology (as stated in my discharge summary) (Please specify if any) [ ] Unable to determine Physician Signature: Date/Time: For continuity of documentation, please document condition throughout progress notes and discharge summary. Thank You. To be completed by CDI/Coding staff for physician review: w Present w Clinical Indicators - Signs / Symptoms / Labs w Results and Location in Medical Record w [x ] w Chest pain has been intermittent located mainly in her lower retrosternal and epigastric region, localized non radiating is not worse with activity. w H&P on 06/13 w [ x ] w Patient symptoms has been improved with tyelenol. w Consult on 06/14 w [ x ] w We might like to discontine amlodipine too and increase carvedilol dose for tachycardia w Consult on 06/14 w [ x] w Acute on chronic diastolic HF: stable on coreg, will stop norvasc and change to losartan 25mg w Cardiology progress notes on 06/15 w Present w Risk Factors w Results and Location in Medical Record w [ x ] w Hypertension w H&P on 06/13 w [ ] w w w [ ] w w w [ ] w w w Present w Treatments w Results and Location in Medical Record w [x ] w Amlodripine 10 mg PO w Medication from 06/13 to 06/15 w [ x] w Carvedilol 3.125 mg PO w Medication on 06/14 w [ ] w w w [ ] w w CDS/Nursing Resident Signature: RK Phone #: Date/Time: 06/18/2020 This is a permanent part of the Medical Record [facility]
--- NOTE | 2020-06-18 12:22 | DIS ---
DATE OF ADMISSION: 06/14/2020 DATE OF DISCHARGE: 06/16/2020 PRIMARY CARE PROVIDER: Dr. Rolanda Neves. DISCHARGE DIAGNOSES: 1. Chest pain. 2. Chest pain, most likely secondary to musculoskeletal etiology. 3. Abnormal liver function tests. 4. Sinus tachycardia of uncertain etiology. 5. Hyponatremia. 6. Normal TSH. CONDITION OF PATIENT ON THE DAY OF DISCHARGE: Stable. I assessed Ms. Heard on the day of discharge. She denies any chest pain or shortness of breath. Vital signs are stable. S1 and S2 are heard, regular. Lungs are clear to auscultation bilaterally. DISCHARGE MEDICATIONS: Metoprolol has been discontinued. She has been started on Coreg 12.5 mg 2 times a day. She has also been started on Cozaar 25 mg at bedtime. Otherwise, no change was made to her pre-admission home medications, including Bactrim DS one tab Wednesday, Wednesday, and Wednesday and Biktarvy 50-200-25 mg tablet daily and ferrous sulfate 325 mg daily. CONSULTATIONS DURING THIS HOSPITALIZATION: Cardiology, Dr. Waldron and Gastroenterology, Dr. Billingsley. HOSPITAL COURSE: Ms. Heard is a pleasant 39-year-old lady, who was admitted to [facility] on June 13, 2020, for chest pain and sinus tachycardia. CT angiogram was nondiagnostic for pulmonary embolism, there was no evidence of thoracic aortic dissection or aneurysm. She also had a nuclear scan, which was normal, without any evidence of pulmonary embolism. She was seen by Cardiology Service. She was started on a beta annamarie for sinus tachycardia. TSH was normal. 2D echocardiogram showed left ventricular ejection fraction of more than 60% to 65%, E/A flow reversal suggestive of diastolic dysfunction, normal right ventricular size and function, normal-sized left atrium, normal-sized right atrium, structurally normal aortic valve, and mild tricuspid regurgitation. She also had abdominal ultrasound for abnormal liver function tests. She had fatty liver and no evidence of cholelithiasis. She was seen by Gastroenterology Service. She had diagnostic blood work ordered, results are pending at the time of this dictation. She is advised to follow up with her primary care provider for alpha-1 antitrypsin, ROEL, smooth muscle antibodies, CD4 count, ceruloplasmin, HIV-1 test, and mitochondrial antibody test. She also had a nuclear stress test on June 16, 2020, which was normal. Many thanks for allowing me to participate in your patient's care. Please feel free to contact me with any questions or concerns. DISCHARGE DESTINATION: Home. ACTIVITY: No restrictions. DIET: Heart-healthy. TIME SPENT: Total amount of time spent coordinating this discharge: 33 minutes. Job ID: [id number]
[2020-06-19 12:38] LABS: LOG10 HIV-1 RNA 2.708 (.)
--- NOTE | 2020-06-20 09:17 | STRESS ---
Acquisition Time: 2020-06-16 10:14:55 Total Exercise Time: 00:04:00 Test Indications: CHEAT PAIN Medications: Protocol: ADENOSINE Max HR: 120 BPM 66% of Pred: 180 BPM Max BP: 118/078 mmHG Max Work Load: 1.0 METS RESTING ECG: NORMAL SINUS RHYTHM AT 86 BPM W/ NON-SPECIFIC T WAVE AND ST SEGMENT CHANGES SYMPTOMS: DYSPNEA NORMAL BP RESPONSE ECTOPY: NONE ECG STRESS: NO SIGNIFICANT CHANGES INTERPRETATION: INDETERMINATE ECG / AWAIT NUCLEAR IMAGES FOR DEFINITIVE DIAGNOSIS Confirmed by DELMAR VASQUES ([id number]) on 06/20/2020 9:17:09 AM Referred By: FATOU VASQUES Confirmed By:DELMAR VASQUES
--- NOTE | 2020-06-22 16:26 | EKG ---
Test Reason : Blood Pressure : / mmHG Vent. Rate : 105 BPM Atrial Rate : 105 BPM P-R Int : 126 ms QRS Dur : 074 ms QT Int : 354 ms P-R-T Axes : 059 004 117 degrees QTc Int : 467 ms Sinus tachycardia Left ventricular hypertrophy with repolarization abnormality Abnormal ECG Confirmed by ANGELA PHAM, HILARIO ([id number]), medical editor NICOLÁS ENGEL ([id number]) on 06/22/2020 4:26:11 PM Referred By: Confirmed By:HILARIO MILLER MD
== END 2020-06-16 14:15 | disposition home or self-care (01) | DRG 292 ==
LOC: ERS 14:10 → 2SE 17:01 → OBSVTOIN 06-14 13:04
PROVIDERS: ADMIT Student in an Organized Health Care Education/Training Program; ATTEND Student in an Organized Health Care Education/Training Program
DX: I11.0 Hypertensive heart disease with heart failure (principal); E87.1 Hypo-osmolality and hyponatremia; R07.9 Chest pain, unspecified; I50.33 Acute on chronic diastolic (congestive) heart failure; Z21 Asymptomatic human immunodeficiency virus [HIV] infection status; K21.9 Gastro-esophageal reflux disease without esophagitis; M41.9 Scoliosis, unspecified; R79.89 Other specified abnormal findings of blood chemistry; R00.0 Tachycardia, unspecified; R19.7 Diarrhea, unspecified; E66.9 Obesity, unspecified; F14.90 Cocaine use, unspecified, uncomplicated; K75.9 Inflammatory liver disease, unspecified; Z20.828 Contact with and (suspected) exposure to other viral communicable diseases; D25.9 Leiomyoma of uterus, unspecified; Z98.51 Tubal ligation status; Z79.899 Other long term (current) drug therapy; Z79.82 Long term (current) use of aspirin; Z68.34 Body mass index [BMI] 34.0-34.9, adult
CPT/HCPCS: 36415; 36600; 71045; 71275; 78451; 78452; 80053; 80061; 80074; 80306; 82103; 82390; 82550; 82728; 83036; 83516; 83540; 83550; 83880; 84443; 84484; 85014; 85018; 85025; 85048; 85049; 85379; 85610; 85730; 86038; 86225; 86361; 87324; 87449; 87536; 87635; 93005; 93017; 93306; 93975; 94760; 96365; 96372; 96376; A9500; A9540; G0378; J0153; J1644; J1650; Q9967; U0003